=== PATIENT | male | born 1965 | race Caucasian/White ===

== ENCOUNTER 2016-08-23 14:34 | Emergency (ER) | payer MEDICAID, OTHER ==
[2016-08-23 14:58] VITALS: BP 129/82; PULSE 106; RESP 19; TEMP 98.3; O2SAT 97
--- NOTE | 2016-08-23 15:21 | C.PDOC ---
History Of Present Illness 51 Y/O MALE REQUESTING ALCOHOL DETOX. DENIES WITHDRAWAL SYMPTOMS OR ANY OTHER COMPLAINTS. Time Seen by Provider: 08/23/16 15:06 Chief Complaint (Nursing): Substance Abuse History Per: Patient History/Exam Limitations: no limitations Current Symptoms Are (Timing): Still Present Modifying Factor(s): Alcohol Associated Symptoms: denies: Suicidal Thoughts, Suicidal Plan Recent travel outside of the [place]: No Past Medical History Reviewed: Historical Data, Nursing Documentation, Vital Signs Vital Signs: Last Vital Signs Temp 98.3 F 08/23/16 14:54 Pulse 106 H 08/23/16 14:54 Resp 19 08/23/16 14:54 BP 129/82 08/23/16 14:54 Pulse Ox 97 08/23/16 15:24 - Medical History PMH: No Chronic Diseases - [facility] Procedures DETOXIFICATION SERVICES FOR SUBSTANCE ABUSE TREATMENT (11/22/15) Family History: States: Unknown Family Hx - Social History Hx Alcohol Use: Yes Hx Substance Use: No - Immunization History Hx Tetanus Toxoid Vaccination: (unk) Hx Influenza Vaccination: (unk) Hx Pneumococcal Vaccination: (unk) Review Of Systems Except As Marked, All Systems Reviewed And Found Negative. Constitutional: Negative for: Fever, Chills Cardiovascular: Negative for: Chest Pain Respiratory: Negative for: Cough, Shortness of Breath Gastrointestinal: Negative for: Nausea, Vomiting, Abdominal Pain Skin: Negative for: Rash Physical Exam - Physical Exam Appears: Non-toxic, No Acute Distress Skin: Warm, Dry Head: Atraumatic, Normacephalic Chest: Symmetrical Cardiovascular: Rhythm Regular Respiratory: Normal Breath Sounds, No Wheezing Extremity: Normal ROM Neurological/Psych: Oriented x3 Gait: Steady ED Course And Treatment O2 Sat by Pulse Oximetry: 97 (RA) Pulse Ox Interpretation: Normal Progress - Re-Evaluation Re-evaluation Note: 08/23/16 15:31 PT INFORMED NO DETOX BEDS AVAILABLE AT THIS TIME. DISCUSSED FOLLOW UP FOR PRESCREEN WITH FAMILY MEMBERS AT BEDSIDE. Disposition - Disposition Referrals: EVELIO,DETOX [Other] Disposition: HOME/ ROUTINE Disposition Time: 15:24 Condition: GOOD Instructions: Abuse of Alcohol (ED) Print Language: CZECH - Clinical Impression Clinical Impression: Alcohol abuse - Scribe Statement The provider has reviewed the documentation as recorded by the Tung ARAGON Provider Attestation: All medical record entries made by the Scribe were at my direction and personally dictated by me. I have reviewed the chart and agree that the record accurately reflects my personal performance of the history, physical exam, medical decision making, and the department course for this patient. I have also personally directed, reviewed, and agree with the discharge instructions and disposition.
== END 2016-08-23 15:57 | disposition home or self-care (01) ==
LOC: C.ER 14:34
DX: F10.10 Alcohol abuse, uncomplicated (principal)

== ENCOUNTER 2018-04-04 13:59 | Inpatient (IN) | payer MEDICAID ==
[2018-04-04] MEDS ORDERED: Sodium Chloride 0.9% 1,000 ML IV ONE ×3 (14:51→16:58)
[2018-04-04 15:28] LABS: BASO # 0.1 K/uL (0.0-0.2); EOS # 0.2 K/uL (0.0-0.7); EOS % 3.2 % (0.0-4.0); HEMOGLOBIN 14.2 g/dL (12.0-18.0); LYMPH # 2.4 K/uL (1.0-4.3); LYMPH % 38.6 % (20.0-40.0); MEAN CELL VOLUME 108.7 fL (80.0-94.0); MEAN CORPUSCULAR HEMOGLOBIN 37.2 pg (27.0-31.0); MEAN CORPUSCULAR HGB CONC 34.2 g/dL (33.0-37.0); NEUT # 2.7 K/uL (1.8-7.0); NEUT % 42.2 % (50.0-75.0); NRBC % 0.1 % (0.0-2.0); RBC 3.82 Mil/uL (4.40-5.90); RED CELL DISTRIBUTION WIDTH 13.5 % (11.5-14.5); WHITE BLOOD COUNT 6.3 K/uL (4.8-10.8)
[2018-04-04 15:32] LABS: URINE BACTERIA RARE (<OCC); URINE BILIRUBIN NEGATIVE (NEGATIVE); URINE BLOOD 1+ (NEGATIVE); URINE CLARITY Clear (Clear); URINE COLOR Yellow (YELLOW); URINE GLUCOSE (UA) NORMAL (Normal); URINE LEUKOCYTE ESTERASE NEG Leu/uL (Negative); URINE PROTEIN 1+ mg/dL (NEGATIVE); URINE UROBILINOGEN NORMAL mg/dL (0.2-1.0)
[2018-04-04 15:43] LABS: ALB/GLOB RATIO 1.4 (1.0-2.1); ALBUMIN 4.9 g/dL (3.5-5.0); ALT/SGPT 177 U/L (21-72); AST/SGOT 236 U/L (17-59); BLOOD UREA NITROGEN 13 mg/dL (9-20); GFR NON-AFRICAN AMERICAN > 60
[2018-04-04 15:44] LABS: ACETAMINOPHEN < 10.0 ug/mL (10.0-30.0); SALICYLATE < 1.0 mg/dL 1
[2018-04-04 15:56] LABS: BARBITURATES, UR NEGATIVE (NEGATIVE); BENZODIAZEPINES, UR NEGATIVE (NEGATIVE); OPIATES, UR NEGATIVE (NEGATIVE); PHENCYCLIDINE, UR NEGATIVE (NEGATIVE)
--- NOTE | 2018-04-04 17:04 | C.PDOC ---
History Of Present Illness 52 year old male presents to the emergency department with complaints of alcohol abuse and suicidal ideation. Patient reports that he drinks everyday and that he had two bottles of vodka. According to the patient's family, patient has wanted to kill himself but does not have homicidal ideation. Patient reports blood in his rectum four days ago. Time Seen by Provider: 04/04/18 14:33 Chief Complaint (Nursing): Substance Abuse History Per: Patient History/Exam Limitations: no limitations Onset/Duration Of Symptoms: Days (4) Current Symptoms Are (Timing): Still Present Suicide/Self Injury Attempted (Context): None Modifying Factor(s): Alcohol Associated Symptoms: Depression, Suicidal Thoughts Past Medical History Reviewed: Historical Data, Nursing Documentation, Vital Signs Vital Signs: Last Vital Signs Temp 98.5 F 04/04/18 16:31 Pulse 90 04/04/18 16:31 Resp 18 04/04/18 16:31 BP 128/80 04/04/18 16:31 Pulse Ox 98 04/04/18 16:31 - Medical History PMH: Depression (?) Denies: Chronic Kidney Disease Surgical History: No Surg Hx - [facility] Procedures DETOXIFICATION SERVICES FOR SUBSTANCE ABUSE TREATMENT (11/22/15) Family History: States: Unknown Family Hx - Social History Hx Alcohol Use: Yes Hx Substance Use: No - Immunization History Hx Tetanus Toxoid Vaccination: No (unk) Hx Influenza Vaccination: No (unk) Hx Pneumococcal Vaccination: No (unk) Review Of Systems Except As Marked, All Systems Reviewed And Found Negative. Constitutional: Negative for: Fever, Chills Gastrointestinal: Positive for: Other (rectal bleed). Negative for: Nausea, Vomiting, Abdominal Pain Psych: Positive for: Depression, Suicidal ideation Physical Exam - Physical Exam Appears: Non-toxic, No Acute Distress, Other (intoxicated) Skin: Warm, Dry Head: Atraumatic, Normacephalic Oral Mucosa: Moist, Other (alcohol on breath) Neck: Normal, Supple Chest: Symmetrical, No Tenderness Cardiovascular: Rhythm Regular, No Murmur Respiratory: Normal Breath Sounds, No Rales, No Rhonchi, No Wheezing Gastrointestinal/Abdominal: Soft, No Tenderness Rectal: Normal Exam, Other (No gross blood. Light brown stool.) Extremity: Normal ROM Gait: Unsteady ED Course And Treatment - Laboratory Results Result Diagrams: 04/04/18 15:18 02/09/19 15:18 Lab Results: Total Bilirubin 0.6 mg/dL (0.2-1.3) 04/04/18 15:18 AST 236 U/L (17-59) H 04/04/18 15:18 ALT 177 U/L (21-72) H D 04/04/18 15:18 Alkaline Phosphatase 87 U/L (38-126) 04/04/18 15:18 Total Protein 8.4 g/dL (6.3-8.3) H 04/04/18 15:18 Albumin 4.9 g/dL (3.5-5.0) 04/04/18 15:18 Globulin 3.5 gm/dL (2.2-3.9) 04/04/18 15:18 Albumin/Globulin Ratio 1.4 (1.0-2.1) 04/04/18 15:18 Urine Color Yellow (YELLOW) 04/04/18 15:18 Urine Clarity Clear (Clear) 04/04/18 15:18 Urine pH 5.0 (5.0-8.0) 04/04/18 15:18 Ur Specific [place] 1.004 (1.003-1.030) 04/04/18 15:18 Urine Protein 1+ mg/dL (NEGATIVE) H 04/04/18 15:18 Urine Glucose (UA) Normal mg/dL (Normal) 04/04/18 15:18 Urine Ketones Negative mg/dL (NEGATIVE) 04/04/18 15:18 Urine Blood 1+ (NEGATIVE) H 04/04/18 15:18 Urine Nitrate Negative (NEGATIVE) 04/04/18 15:18 Urine Bilirubin Negative (NEGATIVE) 04/04/18 15:18 Urine Urobilinogen Normal mg/dL (0.2-1.0) 04/04/18 15:18 Ur Leukocyte Esterase Neg Beth/uL (Negative) 04/04/18 15:18 Urine RBC (Auto) 2 /hpf (0-3) 04/04/18 15:18 Urine Bacteria Rare (<OCC) 04/04/18 15:18 Interpretation Of ECG: Normal sinus rhythm at 91bpm. O2 Sat by Pulse Oximetry: 98 (RA) Pulse Ox Interpretation: Normal Medical Decision Making Medical Decision Making: Plan: EKG Chemistry Bloodwork NaCl IV Fluids Urinalysis Disposition - Disposition Disposition Time: 19:00 Condition: STABLE Forms: [facility] (Z[place]ian) - POA Present On Arrival: None - Clinical Impression Clinical Impression: Alcohol abuse, Alcohol intoxication, Suicidal ideation - Scribe Statement The provider has reviewed the documentation as recorded by the Scribe (Kevyn Beltran) Provider Attestation: All medical record entries made by the Scribe were at my direction and personally dictated by me. I have reviewed the chart and agree that the record accurately reflects my personal performance of the history, physical exam, medical decision making, and the department course for this patient. I have also personally directed, reviewed, and agree with the discharge instructions and disposition. Physician Patient Turnover Patient Signed Over To: Tenisha Hanley Handoff Comments: Patient needs psychiatry evaluation, waiting for sobriety
--- NOTE | 2018-04-05 00:21 | PCM.BM ---
<Carter Porter Wen - Last Filed: 04/05/18 00:18> Treatment Plan Problems - Problems identified on initial assessmt Social Isolation Date Initiated: 04/04/18 Time Initiated: 23:10 Assessment reference: NA Status: Active Anxiety Related to Substance Abuse Date Initiated: 04/04/18 Time Initiated: 23:10 Assessment reference: NA Status: Active Treatment assets and liabiliti Patient Assests: adapts well, cooperative, negotiates basic needs, cognitively intact Patient Liabilities: substance abuse - Milieu Protocol Maintain good personal hygiene: daily Encourage regular showers, daily Remind patient to perform daily oral care, daily Assist patient to perform ADL's Conduct patient checks and document Observation sheet: Q15 minutes Maintain personal safety: every shift Educate patient to report safety concerns to staff, every shift Monitor environment for contraband/sharps Medication safety: Monitor for expected outcome, potential side effects: every shift, Assess barriers to learning: every shift, Assess readiness for medication education: every shift <Karla Wyman - Last Filed: 04/06/18 11:21> - Diagnosis (1) Major depression Status: Acute Interventions: 04/06/18 11:21 * Assess/adjust medications daily and /or as needed * See patient on an individual basis 7x/week to assess symptoms of depression * Monitor for side effects & effectiveness of medications * (2) Alcohol abuse Status: Acute Interventions: 04/06/18 11:21 * Assess 7x/week regarding severity of withdrawal * Educate regarding risks, benefits, side effects and alternatives of medications * Use Motivational Interviewing for abstinence * Use CBT for relapse prevention * Medication management for withdrawal symptoms * Encourage medication assisted treatment * <Amanda Rondon - Last Filed: 04/06/18 14:23> Family Contact Family involvement: Famliy/SO not involved - Goals for Treatment Patient goals for treatment: "I don't know." Discharge/Continuing Care - Education Needs Education Needs: Patient Medication, Patient Coping Skills, Patient Placement options, Patient Community resources - Discharge Discharge Criteria: Tolerates medication w/o severe side effects, No longer exhibiting s/s of withdrawal, Reduction of target symptoms Discharge to:: Substance Abuse Rehab - Treatment Team Participation Discussed with Family/SO: No Was Patient/Family/SO present at Treatment Team Meeting: Yes (SW provided interpretation to [place] language.)
[2018-04-05] MEDS: Multiple Vitamins Tab PO SCH (09:42)
--- NOTE | 2018-04-05 10:48 | PCM.PSYCH ---
Initial Psychiatric Evaluation - Initial Psychiatric Evaluation Type of Admission: Voluntary Legal Status: Capacity Chief Complaint (in patient's own words): "Depressed" History of Present Illness and Precipitating Events: The patient seen, chart reviewed and case discussed. This is a 52-year-old male, single with 3 children; aged 9, 22 and 27. The patient lives with his mother and works in factories and some stores. The patient is here for suicidal ideation with a plan to "get drunk and attack people to be killed." His family came to ER with him and they collaborated his story that he had been depressed on and off for many years, exacerbated by his father's and favorite niece's . Moreover, he drinks heavily which makes him even more depressed. He reports drinking "all day long" and also reports many withdrawal symptoms. He is BAL was 485 on arrival and his liver enzymes were very elevated. He denies drug use. Other than depressive symptoms he also hears voices telling him negative things. He denies nanette. Past psychiatric: Depression. Noncompliant with treatments Family psych history: Father was also depressed. Medical history: GI bleed due to alcohol. Current Medications: Active Medications Generic Name Dose Route Start Last Admin Trade Name Freq PRN Reason Stop Dose Admin Clonidine HCl 0.1 mg 04/05/18 00:06 Catapres PO Q4H PRN Symptoms of alcohol withdrawl Escitalopram Oxalate 5 mg 04/05/18 11:00 Lexapro PO DAILY HALLE Folic Acid 1 mg 04/05/18 10:00 04/05/18 09:42 Folic Acid PO 1 mg DAILY HALLE Administration Influenza Virus Vaccine 60 mcg 04/06/18 10:00 Flucelvax Quad [id number] Syr IM 04/06/18 10:01 .ONCE ONE Lorazepam 1 mg 04/05/18 00:06 04/05/18 09:42 Ativan PO 1 mg Q4H PRN Administration Symptoms of alcohol withdrawl Lorazepam 2 mg 04/05/18 00:15 04/05/18 06:35 Ativan PO 04/11/18 00:14 2 mg Q6H HALLE Administration Taper Multivitamins 1 tab 04/05/18 10:00 04/05/18 09:42 Hexavitamin PO 1 tab DAILY HALLE Administration Nicotine 1 patch 04/04/18 20:00 02/10/19 09:40 Nicoderm Cq TD 1 patch DAILY HALLE Administration Pneumococcal Polyvalent Vaccine 0.5 ml 04/06/18 10:30 Pneumovax 23 Vaccine IM 04/06/18 10:31 .ONCE ONE Thiamine HCl 100 mg 04/05/18 10:00 04/05/18 09:42 Vitamin B1 Tab PO 100 mg DAILY HALLE Administration Trazodone HCl 50 mg 04/05/18 00:06 Desyrel PO HS PRN Insomnia Past Psychiatric History - Past Psychiatric History Previous Treatment History: Intensive Outpatient Pertinent Medical Hx (Current Medical&Sleep Prob, Allergies): Allergies Allergy/AdvReac Type Severity Reaction Status Date / Time No Known Allergies Allergy Verified 04/04/18 14:17 No Known Home Med 04/04/18 Review of Systems - Psychiatric Psychiatric: Abnormal Sleep Pattern, Anhedonia, Anxiety, Depression, Difficulty Concentrating, Mood Swings. absent: Homicidal Ideation, Suicidal Ideation Mental Status Examination - Personal Presentation Personal Presentation: Looks older than stated age - Affect Affect: Blunted - Motor Activity Motor Activity: Calm - Reliability in Providing Information Reliability in Providing Information: Good - Speech Speech: Organized - Mood Mood: Depressed, Anxious - Formal Thought Process Formal Thought Process: No Impairment - Cognitive Functions Orientation: Person, Place, Situation, Time Sensorium: Drowsy Attention/Concentration: Easily distracted Estimate of Intelligence: Average Judgement: Intact, as evidence by: Insight regarding need for hospitalization Memory: Recent intact, as evidence by: Ability to recall events of the day, Remote impaired as evidenced by: Inability to recall sig life events - Risk Risk: Seizure, Withdrawal, Diminished functioning - Strength & Assets Inventory Strength & Assets Inventory: Cooperative - Limitations Limitations: Other DSM 5 DX - DSM 5 DSM 5 Diagnosis: Major depressive d/o - recurrent, severe with psychotic sxs Alcohol use d/o - severe Alcohol withdrawal - Recommended/Plan of Treatment Treatment Recommendations and Plan of Treatment: Taper with ativan due to elevated LFTs Lexapro for depression, start 5 mg but increase to 20 mg slowly Gabapentin for augmentation if needed (he is dizzy, so will hold off) As needed medications All risks, benefits and alternatives of the meds discussed, and the pt agreed and understood. Attend groups and activities Supportive therapy and psychoeducation [place] for abstinence CBT for relapse prevention Encourage MAT Refer to rehab or IOP, and self-help groups Teach healthy lifestyle methods, i.e. diet, exercise, meditation Smoking cessation with [place] Nicotine patch if needed 34 min Projected ELOS: 7 days Prognosis: good w rehab and meds - Smoking Cessation Smoking Cessation Initiated: Yes
[2018-04-06] MEDS: Multiple Vitamins Tab PO SCH (09:49)
[2018-04-06] MEDS ORDERED: Pantoprazole 40 mg EC Tab PO SCH (10:00)
[2018-04-06] MEDS ORDERED: Influenza Vaccine 60 mcg/0.5 mL SYR (4YR UP) IM ONE (10:00)
[2018-04-06] MEDS ORDERED: Pneumococcal 23-Valent Vaccine IM ONE (10:30)
--- NOTE | 2018-04-06 11:22 | PCM.PYCHPN ---
Psychiatric Progress Note - Psychiatric Progress Note Patient seen today, length of contact: 15 min Medication Change: Yes Medical Record Reviewed: Yes Mental Status Examination - Cognitive Function Orientation: Person, Place, Situation, Time Memory: Intact Attention: WNL Concentration: Poor Association: WNL Fund of Knowledge: Poor - Mood Mood: Depressed, Anxious - Affect Affect: Constricted - Speech Speech: Soft - Formal Thought Process Formal Thought Process: No Impairment - Suicidal Ideation Suicidal Ideation: No - Homicidal Ideation Homicidal Ideation: No Goal/Treatment Plan - Goal/Treatment Plan Need for Continued Stay: Remain at risks for inpatient hospitalization, Severe depression anxiety Progress Toward Problem(s) and Goals/Treatment Plan: Major depressive d/o - recurrent, severe with psychotic symptoms Alcohol use d/o - severe Alcohol withdrawal Taper with ativan due to elevated LFTs Lexapro for depression, start 5 mg but increase to 20 mg slowly Gabapentin for augmentation if needed (he is dizzy, so will hold off) As needed medications All risks, benefits and alternatives of the meds discussed, and the pt agreed and understood. Attend groups and activities Supportive therapy and psychoeducation [place] for abstinence CBT for relapse prevention Encourage MAT Refer to rehab or IOP, and self-help groups Teach healthy lifestyle methods, i.e. diet, exercise, meditation Smoking cessation with [place] Nicotine patch if needed - Smoking Cessation Smoking Cessation Initiated: No
--- NOTE | 2018-04-06 14:44 | CARD ---
APPROVED REPORT Date of service: 04/04/2018 EKG Measurement Heart [id number] <Conclusion> Normal sinus rhythm Normal ECG
--- NOTE | 2018-04-06 18:05 | CP.PCM.CON ---
<Torsten Muniz - Last Filed: 04/06/18 19:39> History of Present Illness - History of Present Illness History of Present Illness: 52 year old male with a past medical history of alcohol abuse consults medicine team for bright red blood per rectum. Patient states he's been having multiple episodes of bloody bowel movements for the past four days. Patient who admits is a heavy drinker, denies any associated pain with defecation. Patient also reports some lightheadedness upon examination. Patient denies any chest pain, shortness of breath, fevers, chills, headaches, syncopal episodes, or any other complaints. PMH: Denies Surgical history: denies Allergies: Denies Medications: Denies Social history: Drinks 4 pints of vodka daily and Coors Light. 4 cigarettes/day x 12 years. Denies illicit drug use. PMD: Denies Review of Systems - Constitutional Constitutional: absent: Anorexia, Chills, Frequent Falls, Night Sweats, Weakness - EENT Eyes: absent: Blurred Vision, Discharge, Loss of Peripheral Vision, Loss of Vision Ears: absent: Ear Discharge, Dizziness Nose/Mouth/Throat: absent: Nasal Congestion, Nose Pain, Bleeding Gums, Dysphagia, Mouth Pain - Cardiovascular Cardiovascular: absent: Chest Pain, Claudication, Leg Edema, Pedal Edema, Syncope - Respiratory Respiratory: absent: Hemoptysis - Gastrointestinal Gastrointestinal: absent: Belching, Diarrhea, Dyspepsia, Heartburn, Melena, Nausea, Vomiting - Integumentary Integumentary: absent: Dry Skin, Skin Pain, Swelling - Neurological Neurological: absent: Syncope, Tremor, Vertigo, Weakness - Endocrine Endocrine: absent: Polydipsia, Polyphagia, Polyuria - Hematologic/Lymphatic Hematologic: absent: Easy Bleeding, Easy Bruising, Lymphadenopathy Past Patient History - Infectious Disease Hx of Infectious Diseases: None - Past Medical History & Family History Past Medical History?: Yes - Past Social History Smoking Status: Heavy Smoker > 10 Cigarettes Daily - CARDIAC Hx Cardiac Disorders: No Hx Hypertension: No - PULMONARY Hx Tuberculosis: No - NEUROLOGICAL HX Cerebrovascular Accident: No Hx Seizures: No - HEENT Hx HEENT Problems: No - RENAL Hx Chronic Kidney Disease: No - ENDOCRINE/METABOLIC Hx Endocrine Disorders: No - HEMATOLOGICAL/ONCOLOGICAL Hx Cancer: No Hx Human Immunodeficiency Virus (HIV): No - INTEGUMENTARY Hx Dermatological Problems: No - MUSCULOSKELETAL/RHEUMATOLOGICAL Hx Musculoskeletal Disorders: No Hx Falls: No - GASTROINTESTINAL Hx Gastrointestinal Disorders: Yes Hx Diarrhea: Yes Hx Nausea: Yes Hx Vomiting: Yes - GENITOURINARY/GYNECOLOGICAL Hx Genitourinary Disorders: No Hx Sexually Transmitted Disorders: No - PSYCHIATRIC Hx Substance Use: Yes - SURGICAL HISTORY Hx Surgeries: No - ANESTHESIA Hx Anesthesia: No Hx Anesthesia Reactions: No Meds Allergies/Adverse Reactions: Allergies Allergy/AdvReac Type Severity Reaction Status Date / Time No Known Allergies Allergy Verified 04/04/18 14:17 - Medications Medications: Current Medications Clonidine HCl (Catapres) 0.1 mg PO Q4H PRN PRN Reason: Symptoms of alcohol withdrawl Escitalopram Oxalate (Lexapro) 5 mg PO DAILY [facility] Last Admin: 04/06/18 09:49 Dose: 5 mg Folic Acid (Folic Acid) 1 mg PO DAILY [facility] Last Admin: 04/06/18 09:49 Dose: 1 mg Gabapentin (Neurontin) 100 mg PO TID [facility] Last Admin: 04/06/18 17:47 Dose: 100 mg Lorazepam (Ativan) 1 mg PO Q4H PRN PRN Reason: Symptoms of alcohol withdrawl Last Admin: 04/06/18 09:54 Dose: 1 mg Lorazepam (Ativan) 2 mg PO Q6H [facility]; Taper Stop: 04/11/18 00:14 Last Admin: 04/06/18 17:47 Dose: 2 mg Multivitamins (Hexavitamin) 1 tab PO DAILY [facility] Last Admin: 04/06/18 09:49 Dose: 1 tab Nicotine (Nicoderm Cq) 1 patch TD DAILY [facility] Last Admin: 04/06/18 09:49 Dose: 1 patch Pantoprazole Sodium (Protonix Ec Tab) 40 mg PO DAILY [facility] Last Admin: 04/06/18 09:49 Dose: 40 mg Thiamine HCl (Vitamin B1 Tab) 100 mg PO DAILY [facility] Last Admin: 04/06/18 09:49 Dose: 100 mg Trazodone HCl (Desyrel) 100 mg PO HS PRN PRN Reason: Insomnia Physical Exam - Head Exam Head Exam: ATRAUMATIC, NORMAL INSPECTION - Eye Exam Eye Exam: EOMI, Normal appearance, PERRL Pupil Exam: NORMAL ACCOMODATION - ENT Exam ENT Exam: Mucous Membranes Moist, Normal Oropharynx - Respiratory Exam Respiratory Exam: Clear to Auscultation Bilateral, NORMAL BREATHING PATTERN. absent: Respiratory Distress - Cardiovascular Exam Cardiovascular Exam: REGULAR RHYTHM, +S1, +S2 - GI/Abdominal Exam GI & Abdominal Exam: Normal Bowel Sounds, Soft. absent: Tenderness - Back Exam Back exam: NORMAL INSPECTION. absent: paraspinal tenderness - Neurological Exam Neurological exam: Alert, CN II-XII Intact, Oriented x3 Additional comments: + Tremor upper extremity bilaterally. - Psychiatric Exam Psychiatric exam: Normal Affect, Normal Mood - Skin Skin Exam: Dry, Intact Results - Vital Signs Recent Vital Signs: Last Vital Signs Temp 97.1 F L 04/06/18 09:42 Pulse 98 H 04/06/18 15:19 Resp 18 04/06/18 01:58 BP 131/77 04/06/18 15:19 Pulse Ox 95 04/04/18 21:32 - Labs Result Diagrams: 04/04/18 15:18 04/04/18 15:18 Assessment & Plan - Assessment and Plan (Free Text) Assessment: 52 year old male with a past medical history of etoh abuse for gi bleed. Plan: 1.GI Bleed Transfer to Telemetry -Multiple BM's witnessed with blood in toilet. -NPO Diet -Monitor h/h -GI Dr. Florez consulted. Help appreciated -Protonix 40mg IVP Q12 2.Transaminitis AST:236 ALT: 177 Likely 2/2 to alcohol abuse. -Hepatitis panel ordered. Will f/u with results. -Abdominal u/s ordered .Will f/u with results. 3.etoh Withdrawal JANUARY:485 on admission Ativan 2q6 HALLE Ativan 1q4 PRN Seizure Precautions Fall precautions Psychiatry consulted. Help appreciated. 4. Insomnia Trazadone 100mg PO HS PRN 5. Hypertension Clonidine .1mg PO Q4 PRN 6. Smoking cesastion Nicoderm Patch 1 TD Daily Plan discussed with Attending Dr. Vic Muniz <Kiya Ho V - Last Filed: 04/06/18 23:36> Meds - Medications Medications: Current Medications Clonidine HCl (Catapres) 0.1 mg PO Q4H PRN PRN Reason: Symptoms of alcohol withdrawl Escitalopram Oxalate (Lexapro) 5 mg PO DAILY [facility] Last Admin: 04/06/18 09:49 Dose: 5 mg Folic Acid (Folic Acid) 1 mg PO DAILY [facility] Last Admin: 04/06/18 09:49 Dose: 1 mg Gabapentin (Neurontin) 100 mg PO TID [facility] Last Admin: 04/06/18 17:47 Dose: 100 mg Multivitamins/Vitamin C 10 ml/Thiamine HCl 100 mg/ Folic Acid 1 mg/ Sodium Chloride 1,011.2 mls @ 120 mls/hr IV .Q8H26M ONE Stop: 04/07/18 03:31 Last Admin: 04/06/18 21:11 Dose: 120 mls/hr Magnesium Sulfate/Dextrose (Magnesium Sulfate 1 Gm/100 Ml D5w) 1 gm in 100 mls @ 300 mls/hr IVPB Q30M [facility] Stop: 04/07/18 00:19 Lorazepam (Ativan) 1 mg IVP Q4H PRN PRN Reason: Symptoms of alcohol withdrawl Multivitamins (Hexavitamin) 1 tab PO DAILY [facility] Last Admin: 04/06/18 09:49 Dose: 1 tab Nicotine (Nicoderm Cq) 1 patch TD DAILY [facility] Last Admin: 04/06/18 09:49 Dose: 1 patch Pantoprazole Sodium (Protonix Inj) 40 mg IVP Q12H [facility] Last Admin: 04/06/18 21:07 Dose: 40 mg Thiamine HCl (Vitamin B1 Tab) 100 mg PO DAILY [facility] Last Admin: 04/06/18 09:49 Dose: 100 mg Trazodone HCl (Desyrel) 100 mg PO HS PRN PRN Reason: Insomnia Results - Vital Signs Recent Vital Signs: Last Vital Signs Temp 98.6 F 04/06/18 21:10 Pulse 98 H 04/06/18 21:10 Resp 20 04/06/18 21:10 BP 123/79 04/06/18 21:10 Pulse Ox 97 04/06/18 21:10 - Labs Result Diagrams: 04/06/18 20:10 04/06/18 20:10 Labs: Laboratory Results - last 24 hr 04/06/18 04/06/18 04/06/18 20:10 20:10 20:10 WBC 8.5 RBC 3.90 L Hgb 14.8 Hct 42.4 MCV 108.8 H MCH 38.0 H MCHC 34.9 RDW 12.9 Plt Count 92 L MPV 11.8 H Neut % (Auto) 71.2 Lymph % (Auto) 16.2 L Pitt % (Auto) 10.4 H Eos % (Auto) 1.5 Baso % (Auto) 0.7 Neut # (Auto) 6.1 Lymph # (Auto) 1.4 Pitt # (Auto) 0.9 H Eos # (Auto) 0.1 Baso # (Auto) 0.1 PT 13.0 H INR 1.2 Sodium 137 Potassium 3.6 Chloride 98 Carbon Dioxide 26 Anion Gap 16 BUN 19 Creatinine 1.1 Est GFR ( Amer) > 60 Est GFR (Non-Af Amer) > 60 Random Glucose 111 H Calcium 10.0 Phosphorus 3.7 Magnesium 1.2 L Total Bilirubin 1.4 H AST 594 H D ALT 400 H D Alkaline Phosphatase 90 Total Protein 9.2 H Albumin 5.2 H Globulin 4.1 H Albumin/Globulin Ratio 1.3 Hep Bs Antigen Hepatitis C Antibody 04/06/18 20:10 WBC RBC Hgb Hct MCV MCH MCHC RDW Plt Count MPV Neut % (Auto) Lymph % (Auto) Pitt % (Auto) Eos % (Auto) Baso % (Auto) Neut # (Auto) Lymph # (Auto) Pitt # (Auto) Eos # (Auto) Baso # (Auto) PT INR Sodium Potassium Chloride Carbon Dioxide Anion Gap BUN Creatinine Est GFR ( Amer) Est GFR (Non-Af Amer) Random Glucose Calcium Phosphorus Magnesium Total Bilirubin AST ALT Alkaline Phosphatase Total Protein Albumin Globulin Albumin/Globulin Ratio Hep Bs Antigen Negative Hepatitis C Antibody Negative Attending/Attestation - Attestation I have personally seen and examined this patient.: Yes I have fully participated in the care of the patient.: Yes I have reviewed all pertinent clinical information: Yes Notes (Text): Medicine consulted for rectal bleeding Patient on 5EAST for management of alcohol withdrawal and suicidal ideation Reported to his nurse today, that he has been having rectal bleeding since . Observed patient's toilet bowl noted blood no clots observed as well as multiple toilet tissues noted for blood streaks. No new blood work was collected for today; noted megaloblastic anemia, thrombocytopenia from 04/04/18. Patient ordered for new blood work today. Patient has noted heavy alcohol use; admitted 400 level. Patient is quite tremulous on exam; psych is managing him with ativan PO taper, MVI/folic/thiamine and started him on Lexapro. Patient transferred out to telemetry floor in light of rectal bleeding/ Start protonic 40mg IVQ12. f/u H/H/ occult blood. Patient denies NSAIDS, denies hx of ulcer, no prior endoscopy/colonoscopy. Will obtain GI eval. Assessment/Plan 1) Rectal Bleeding * monitor on telemetry * gi consult * NPO * repeat blood work * protonix 40mg IV Q12H * Observed patient's toilet bowl noted blood no clots observed as well as multiple toilet tissues noted for blood streaks 2) Transaminitis * suspect secondary to alcohol * Abdominal US ordered * tylenol <10 * alcohol 485 * hepatitis panel pending * check INR in AM 3) Alcohol Abuse/Withdrawal * continue banana bag on the telemetry floor * Ativan As needed for symptoms of withdrawa * Fall precautions 4) Thrombocytopenia * suspect secondary to alcohol effect on bone marrow suppression * Monitor while on Protonix * no noted rashing, petechaie on exam * Abdominal US ordered 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
[2018-04-06] MEDS ORDERED: Sodium Chloride 0.9% 1,000 ML IV SCH (18:15)
[2018-04-06] MEDS ORDERED: Multivitamin (MVI) 10 ML, Thiamine 100 MG, Folic Acid 1 MG in Sodium Chloride 0.9% 1,00... IV ONE (19:06)
[2018-04-06 20:22] LABS: INR 1.2
[2018-04-06 20:26] LABS: BASO # 0.1 K/uL (0.0-0.2); BASO % 0.7 % (0.0-2.0); EOS # 0.1 K/uL (0.0-0.7); EOS % 1.5 % (0.0-4.0); HEMOGLOBIN 14.8 g/dL (12.0-18.0); LYMPH # 1.4 K/uL (1.0-4.3); LYMPH % 16.2 % (20.0-40.0); MEAN CELL VOLUME 108.8 fL (80.0-94.0); MEAN CORPUSCULAR HGB CONC 34.9 g/dL (33.0-37.0); MEAN PLATELET VOLUME 11.8 fL (7.2-11.7); MONO # 0.9 K/uL (0.0-0.8); MONO % 10.4 % (0.0-10.0); NEUT # 6.1 K/uL (1.8-7.0); NEUT % 71.2 % (50.0-75.0); NRBC % 0.1 % (0.0-2.0); RBC 3.9 Mil/uL (4.40-5.90); RED CELL DISTRIBUTION WIDTH 12.9 % (11.5-14.5); WHITE BLOOD COUNT 8.5 K/uL (4.8-10.8)
[2018-04-06 20:37] LABS: ALB/GLOB RATIO 1.3 (1.0-2.1); ALBUMIN 5.2 g/dL (3.5-5.0); ALT/SGPT 400 U/L (21-72); AST/SGOT 594 U/L (17-59); BLOOD UREA NITROGEN 19 mg/dL (9-20); GFR NON-AFRICAN AMERICAN > 60
[2018-04-06 21:57] LABS: HEPATITIS B SURFACE AG Negative (NEGATIVE)
[2018-04-06 23:12] LABS: HEPATITIS C ANTIBODY NEGATIVE (NEGATIVE)
[2018-04-06] MEDS: Magnesium Sulfate 1 gm in D5W 1 GM/100 ML BAG IVPB SCH (23:34)
[2018-04-07] MEDS: Magnesium Sulfate 1 gm in D5W 1 GM/100 ML BAG IVPB SCH (01:00)
[2018-04-07 01:31] LABS: HEPATITIS A IGM NEGATIVE (NEGATIVE); HEPATITIS B CORE AB NEGATIVE (NEGATIVE)
[2018-04-07 06:36] LABS: BASO % 0.4 % (0.0-2.0); EOS # 0.1 K/uL (0.0-0.7); EOS % 1.6 % (0.0-4.0); LYMPH # 1.7 K/uL (1.0-4.3); LYMPH % 19.8 % (20.0-40.0); MEAN CELL VOLUME 110.1 fL (80.0-94.0); MEAN CORPUSCULAR HEMOGLOBIN 38.9 pg (27.0-31.0); MEAN CORPUSCULAR HGB CONC 35.3 g/dL (33.0-37.0); MEAN PLATELET VOLUME 11.8 fL (7.2-11.7); MONO # 1.1 K/uL (0.0-0.8); NEUT # 5.8 K/uL (1.8-7.0); NEUT % 66.2 % (50.0-75.0); NRBC % 0.1 % (0.0-2.0); RBC 3.62 Mil/uL (4.40-5.90); RED CELL DISTRIBUTION WIDTH 13.2 % (11.5-14.5); WHITE BLOOD COUNT 8.8 K/uL (4.8-10.8)
[2018-04-07 06:48] LABS: ALB/GLOB RATIO 1.3 (1.0-2.1); ALT/SGPT 477 U/L (21-72); AST/SGOT 674 U/L (17-59); BLOOD UREA NITROGEN 13 mg/dL (9-20); CALCIUM 9.4 mg/dl (8.6-10.4); GFR NON-AFRICAN AMERICAN > 60; INR 1.1; PROTHROMBIN TIME 12.3 SECONDS (9.7-12.2)
[2018-04-07 06:53] LABS: IRON 126 ug/dL (49-181)
--- NOTE | 2018-04-07 06:59 | CP.PCM.PN ---
<Tigre Woodall - Last Filed: 04/07/18 22:37> Subjective - Date & Time of Evaluation Date of Evaluation: 04/07/18 Time of Evaluation: 06:59 - Subjective Subjective: Progress note for Hospitalist service Patient seen and examined at bedside. As per overnight staff, patient was reportedly severely agitated despite multiple doses of Ativan. Medicine team was consulted for rectal bleeding and has a history of alcohol abuse. Unable to obtain further information from patient as he is confused. Objective - Vital Signs/Intake and Output Vital Signs (last 24 hours): Temp Pulse Resp BP Pulse Ox 98.2 F 91 H 20 141/83 97 04/07/18 04:00 04/07/18 04:00 04/07/18 04:00 04/07/18 04:00 04/07/18 04:00 - Medications Medications: Current Medications Clonidine HCl (Catapres) 0.1 mg PO Q4H PRN PRN Reason: Symptoms of alcohol withdrawl Escitalopram Oxalate (Lexapro) 5 mg PO DAILY [facility] Last Admin: 04/06/18 09:49 Dose: 5 mg Folic Acid (Folic Acid) 1 mg PO DAILY [facility] Last Admin: 04/06/18 09:49 Dose: 1 mg Gabapentin (Neurontin) 100 mg PO TID [facility] Last Admin: 04/06/18 17:47 Dose: 100 mg Lorazepam (Ativan) 2 mg IVP Q30M PRN PRN Reason: Symptoms of alcohol withdrawl Last Admin: 04/07/18 06:17 Dose: 2 mg Multivitamins (Hexavitamin) 1 tab PO DAILY [facility] Last Admin: 04/06/18 09:49 Dose: 1 tab Nicotine (Nicoderm Cq) 1 patch TD DAILY [facility] Pantoprazole Sodium (Protonix Inj) 40 mg IVP Q12H [facility] Last Admin: 04/07/18 06:34 Dose: 40 mg Thiamine HCl (Vitamin B1 Tab) 100 mg PO DAILY [facility] Last Admin: 04/06/18 09:49 Dose: 100 mg Trazodone HCl (Desyrel) 100 mg PO HS PRN PRN Reason: Insomnia - Labs Labs: 04/06/18 20:10 04/07/18 06:24 PT 12.3 SECONDS (9.7-12.2) H 04/07/18 06:24 INR 1.1 04/07/18 06:24 - Constitutional Appears: Agitated, Confused - Head Exam Head Exam: ATRAUMATIC, NORMOCEPHALIC - Eye Exam Eye Exam: EOMI, PERRL - ENT Exam ENT Exam: Mucous Membranes Moist - Respiratory Exam Respiratory Exam: NORMAL BREATHING PATTERN - Cardiovascular Exam Cardiovascular Exam: Tachycardia, +S1, +S2 - GI/Abdominal Exam GI & Abdominal Exam: Soft, Normal Bowel Sounds. absent: Tenderness - Extremities Exam Extremities Exam: absent: Pedal Edema - Neurological Exam Additional comments: Confused - Psychiatric Exam Psychiatric exam: Agitated - Skin Skin Exam: Dry, Warm Assessment and Plan - Assessment and Plan (Free Text) Assessment: 52 year old male with history of alcohol abuse who had GI bleed, overnight patient remained agitated despite multiple doses of Ativan. Plan: Delirium tremens Alcohol withdrawal Remains agitated despite multiple doses of Ativan overnight Tachycardic Transferred to ICU GI bleed Keep NPO Monitor H/H GI Dr. Florez consulted, help appreciated Protonix 40mg IV Q12 Transaminitis AST 674 ALT 477 likely due to alcohol abuse Abdomen US fatty infiltration vs. parenchymal disease Hep panel negative Keep NPO Hypokalemia K 3.3 repleted Dispo: Transferred to ICU given concern for DTs Case discussed with Dr. Vic Woodall, PGY1 <Kiya Ho V - Last Filed: 04/09/18 20:32> Objective - Vital Signs/Intake and Output Vital Signs (last 24 hours): Temp Pulse Resp BP Pulse Ox 97.4 F L 100 H 15 118/68 97 04/09/18 08:00 04/09/18 20:00 04/09/18 20:00 04/09/18 20:00 04/09/18 20:00 Intake and Output: 04/09/18 04/10/18 18:59 06:59 Intake Total 2220.58 7 Output Total 700 Balance 1520.58 7 - Medications Medications: Current Medications Artificial Tears (Artificial Tears) 0 ml OU BID [facility] Last Admin: 04/09/18 17:56 Dose: 1 drop Bisacodyl (Dulcolax) 10 mg PO ONCE ONE Stop: 04/10/18 06:01 Escitalopram Oxalate (Lexapro) 5 mg PO DAILY [facility] Last Admin: 02/14/19 09:18 Dose: 5 mg Folic Acid (Folic Acid) 1 mg PO DAILY [facility] Last Admin: 04/06/18 09:49 Dose: 1 mg Gabapentin (Neurontin) 100 mg PO TID [facility] Last Admin: 04/09/18 17:50 Dose: 100 mg Dexmedetomidine HCl 200 mcg/ (Sodium Chloride) 50 mls @ 2.95 mls/hr IV TITR PRN; Protocol PRN Reason: Agitation Last Titration: 04/09/18 19:22 Dose: 0 mcg/kg/hr, 0 mls/hr Lorazepam (Ativan) 2 mg PO Q4 [facility]; Taper Stop: 04/12/18 22:59 Last Admin: 04/09/18 20:22 Dose: 2 mg Multivitamins (Hexavitamin) 1 tab PO DAILY [facility] Last Admin: 04/06/18 09:49 Dose: 1 tab Nicotine (Nicoderm Cq) 1 patch TD DAILY [facility] Last Admin: 04/09/18 09:18 Dose: 1 patch Pantoprazole Sodium (Protonix Inj) 40 mg IVP Q12H [facility] Last Admin: 04/09/18 17:51 Dose: 40 mg Potassium Chloride (K-Dur 20 Meq Er Tab) 40 meq PO ONCE ONE Stop: 04/10/18 15:52 Thiamine HCl (Vitamin B1 Tab) 100 mg PO DAILY [facility] Last Admin: 04/06/18 09:49 Dose: 100 mg Trazodone HCl (Desyrel) 100 mg PO HS PRN PRN Reason: Insomnia - Labs Labs: 04/09/18 14:51 04/09/18 14:51 PT 12.3 SECONDS (9.7-12.2) H 04/07/18 06:24 INR 1.1 04/07/18 06:24 Assessment and Plan (1) Alcohol abuse Status: Acute (2) Alcohol intoxication Status: Acute (3) Rectal bleeding Status: Acute (4) Prophylactic measure Status: Acute Attending/Attestation - Attestation I have personally seen and examined this patient.: Yes I have fully participated in the care of the patient.: Yes I have reviewed all pertinent clinical information, including history, physical exam and plan: Yes Notes (Text): This is late computer entry for 04/07/18. Patient seen, examined and case discussed with day-time resident. Discussed with night time resident, patient require Ativan 14mg IV total overnight; inspite, patient remains tachycardia, agitated, hallucinating, with 2 1:1 persons preventing the patient from trying to get out of bed. Discussed with ICU, patient accepted and transferred to the unit for delirum tremens, on Precedex drip.
[2018-04-07 07:02] LABS: % IRON SATURATION 37 (20-55); TOTAL IRON BINDING CAPACITY 344 ug/dL (250-450)
[2018-04-07 07:59] LABS: FOLATE > 20.0 ng/mL
[2018-04-07] MEDS: Dexmedetomidine Hydrochloride 200 MCG in Sodium Chloride 0.9% 48 ML IV PRN ×8 (09:15→23:00)
[2018-04-07] MEDS ORDERED: Multivitamin (MVI) 10 ML, Thiamine 100 MG, Folic Acid 1 MG in Sodium Chloride 0.9% 1,00... IV ONE ×2 (10:31→11:00)
--- NOTE | 2018-04-07 13:18 | US ---
Abdominal ultrasound HISTORY: Transaminitis. COMPARISON: 11/22/2015 TECHNIQUE: Real-time sonography was performed through the abdomen. FINDINGS: LIVER: 17.5 centimeters in length. Increased echogenicity of the hepatic parenchymal cortex suggestive for fatty infiltration versus hepatic parenchymal disease. Clinical correlation. GALLBLADDER: No calculi or sludge. Normal wall thickness of 2 millimeters. Negative sonographic Patricio's sign. Common bile duct measures 4 millimeters, within normal limits. Limited visualization of the pancreas. Spleen measures 7.8 centimeters in length, within normal limits. Limited visualization of the aorta and IVC. RIGHT KIDNEY: 11.3 x 5.6 x 5.7 centimeters. No calculi or hydronephrosis. LEFT KIDNEY: 11.3 x 5.4 x 6.2 centimeters. No calculi or hydronephrosis. Limited portable ICU study as the patient was not cooperative. IMPRESSION: 1. Increased echogenicity of the hepatic parenchymal cortex suggestive for fatty infiltration versus hepatic parenchymal disease. Clinical correlation. 2. Limited visualization of the pancreas. 3. Limited visualization of the aorta and IVC.
[2018-04-07] MEDS ORDERED: Metoprolol 1 mg/ml Inj IVP ONE (13:36)
[2018-04-07] MEDS: Sodium Chloride 0.9% 1,000 ML IV SCH (17:44)
--- NOTE | 2018-04-07 18:24 | CP.PCM.CON ---
<Silvestre Mart S - Last Filed: 04/07/18 18:46> Meds Allergies/Adverse Reactions: Allergies Allergy/AdvReac Type Severity Reaction Status Date / Time No Known Allergies Allergy Verified 04/04/18 14:17 - Medications Medications: Current Medications Chlordiazepoxide (Librium) 25 mg PO Q6 [facility]; Taper Stop: 04/11/18 17:59 Last Admin: 04/07/18 17:28 Dose: 25 mg Clonidine HCl (Catapres) 0.1 mg PO Q4H PRN PRN Reason: Symptoms of alcohol withdrawl Escitalopram Oxalate (Lexapro) 5 mg PO DAILY [facility] Last Admin: 04/07/18 10:50 Dose: 5 mg Folic Acid (Folic Acid) 1 mg PO DAILY [facility] Last Admin: 04/06/18 09:49 Dose: 1 mg Gabapentin (Neurontin) 100 mg PO TID [facility] Last Admin: 04/07/18 17:28 Dose: 100 mg Dexmedetomidine HCl 200 mcg/ (Sodium Chloride) 50 mls @ 2.95 mls/hr IV TITR PRN; Protocol PRN Reason: Agitation Last Titration: 04/07/18 17:25 Dose: 1.5 mcg/kg/hr, 22.11 mls/hr Sodium Chloride (Sodium Chloride 0.9%) 1,000 mls @ 125 mls/hr IV .Q8H [facility] Last Admin: 04/07/18 17:44 Dose: Not Given Multivitamins/Vitamin C 10 ml/Thiamine HCl 100 mg/ Folic Acid 1 mg/ Sodium Chloride 1,011.2 mls @ 125 mls/hr IV .Q8H6M ONE Stop: 04/07/18 19:05 Last Admin: 04/07/18 15:21 Dose: 125 mls/hr Multivitamins (Hexavitamin) 1 tab PO DAILY [facility] Last Admin: 04/06/18 09:49 Dose: 1 tab Nicotine (Nicoderm Cq) 1 patch TD DAILY [facility] Last Admin: 04/07/18 11:24 Dose: 1 patch Pantoprazole Sodium (Protonix Inj) 40 mg IVP Q12H [facility] Last Admin: 04/07/18 17:30 Dose: 40 mg Thiamine HCl (Vitamin B1 Tab) 100 mg PO DAILY [facility] Last Admin: 04/06/18 09:49 Dose: 100 mg Trazodone HCl (Desyrel) 100 mg PO HS PRN PRN Reason: Insomnia Results - Vital Signs Recent Vital Signs: Last Vital Signs Temp 97.4 F L 04/07/18 16:00 Pulse 73 04/07/18 18:00 Resp 15 04/07/18 15:38 BP 144/89 04/07/18 17:42 Pulse Ox 95 04/07/18 18:00 - Labs Result Diagrams: 04/07/18 06:24 04/07/18 06:24 Labs: Laboratory Results - last 24 hr 04/06/18 04/06/18 04/06/18 20:10 20:10 20:10 WBC 8.5 RBC 3.90 L Hgb 14.8 Hct 42.4 MCV 108.8 H MCH 38.0 H MCHC 34.9 RDW 12.9 Plt Count 92 L MPV 11.8 H Neut % (Auto) 71.2 Lymph % (Auto) 16.2 L Carson % (Auto) 10.4 H Eos % (Auto) 1.5 Baso % (Auto) 0.7 Neut # (Auto) 6.1 Lymph # (Auto) 1.4 Carson # (Auto) 0.9 H Eos # (Auto) 0.1 Baso # (Auto) 0.1 Differential Comment Retic Count PT 13.0 H INR 1.2 Sodium 137 Potassium 3.6 Chloride 98 Carbon Dioxide 26 Anion Gap 16 BUN 19 Creatinine 1.1 Est GFR ( Amer) > 60 Est GFR (Non-Af Amer) > 60 Random Glucose 111 H Calcium 10.0 Phosphorus 3.7 Magnesium 1.2 L Iron TIBC % Saturation Ferritin Total Bilirubin 1.4 H AST 594 H D ALT 400 H D Alkaline Phosphatase 90 Ammonia Total Protein 9.2 H Albumin 5.2 H Globulin 4.1 H Albumin/Globulin Ratio 1.3 Vitamin B12 Folate Hepatitis A IgM Ab Hep Bs Antigen Hep B Core IgM Ab Hepatitis C Antibody 04/06/18 04/07/18 04/07/18 20:10 06:24 06:24 WBC 8.8 RBC 3.62 L Hgb 14.0 Hct 39.8 MCV 110.1 H MCH 38.9 H MCHC 35.3 RDW 13.2 Plt Count 87 L MPV 11.8 H Neut % (Auto) 66.2 Lymph % (Auto) 19.8 L Carson % (Auto) 12.0 H Eos % (Auto) 1.6 Baso % (Auto) 0.4 Neut # (Auto) 5.8 Lymph # (Auto) 1.7 Carson # (Auto) 1.1 H Eos # (Auto) 0.1 Baso # (Auto) 0.0 Differential Comment Retic Count 0.4 L PT INR Sodium Potassium Chloride Carbon Dioxide Anion Gap BUN Creatinine Est GFR ( Amer) Est GFR (Non-Af Amer) Random Glucose Calcium Phosphorus Magnesium Iron 126 TIBC 344 % Saturation 37 Ferritin Total Bilirubin AST ALT Alkaline Phosphatase Ammonia Total Protein Albumin Globulin Albumin/Globulin Ratio Vitamin B12 Folate Hepatitis A IgM Ab Negative Hep Bs Antigen Negative Hep B Core IgM Ab Negative Hepatitis C Antibody Negative 04/07/18 04/07/18 04/07/18 06:24 06:24 06:24 WBC RBC Hgb Hct MCV MCH MCHC RDW Plt Count MPV Neut % (Auto) Lymph % (Auto) Carson % (Auto) Eos % (Auto) Baso % (Auto) Neut # (Auto) Lymph # (Auto) Carson # (Auto) Eos # (Auto) Baso # (Auto) Differential Comment Retic Count PT 12.3 H INR 1.1 Sodium 136 Potassium 3.3 L Chloride 102 Carbon Dioxide 21 L Anion Gap 16 BUN 13 Creatinine 0.7 L Est GFR ( Amer) > 60 Est GFR (Non-Af Amer) > 60 Random Glucose 117 H Calcium 9.4 Phosphorus Magnesium 1.9 Iron TIBC % Saturation 38 Ferritin 1160.0 Total Bilirubin 1.9 H AST 674 H ALT 477 H Alkaline Phosphatase 102 Ammonia Total Protein 9.0 H Albumin 5.0 Globulin 3.9 Albumin/Globulin Ratio 1.3 Vitamin B12 > 1000 H Folate > 20.0 Hepatitis A IgM Ab Hep Bs Antigen Hep B Core IgM Ab Hepatitis C Antibody 04/07/18 06:24 WBC RBC Hgb Hct MCV MCH MCHC RDW Plt Count MPV Neut % (Auto) Lymph % (Auto) Carson % (Auto) Eos % (Auto) Baso % (Auto) Neut # (Auto) Lymph # (Auto) Carson # (Auto) Eos # (Auto) Baso # (Auto) Differential Comment Retic Count PT INR Sodium Potassium Chloride Carbon Dioxide Anion Gap BUN Creatinine Est GFR ( Amer) Est GFR (Non-Af Amer) Random Glucose Calcium Phosphorus Magnesium Iron TIBC % Saturation Ferritin Total Bilirubin AST ALT Alkaline Phosphatase Ammonia 23 Total Protein Albumin Globulin Albumin/Globulin Ratio Vitamin B12 Folate Hepatitis A IgM Ab Hep Bs Antigen Hep B Core IgM Ab Hepatitis C Antibody Attending/Attestation - Attestation I have personally seen and examined this patient.: Yes I have fully participated in the care of the patient.: Yes I have reviewed all pertinent clinical information: Yes Notes (Text): 04/07/18 18:46 Patient seen and examined Transferred to intensive care unit for delirium tremens and after he received 40 mg of Ativan on the floor Patient started on Precedex drip Continue banana bag Start Librium and follow-up [facility] protocol Potassium supplement <Manuel Elizondo M - Last Filed: 04/07/18 20:00> History of Present Illness - History of Present Illness History of Present Illness: Critical Care Consult Note for Dr. Mart. 52 year old male with PMHx of Depression and Alcohol Use Disorder, who presented to the ED on 04/04 with complaints of suicidal ideation and alcohol intoxication. Patient was admitted to the psychiatric inpatient unit on 04/04. On 04/06, patient began complaining of blood per rectum and was transferred to the telemetry floor for evaluation. Overnight 04/06 - 04/07, patient began showing signs of severe agitation unresponsive to Ativan. ICU was consulted for concern of DTs. Currently, patient is agitated and altered. ROS unobtainable due to patient's mental status. Following obtained through chart review PMH: Denies Surgical history: denies Allergies: Denies Medications: Denies Social history: Drinks 4 pints of vodka daily and Coors Light. 4 cigarettes/day x 12 years. Denies illicit drug use. Review of Systems - Review of Systems Systems not reviewed;Unavailable: Altered Mental Status Past Patient History - Infectious Disease Hx of Infectious Diseases: None - Past Medical History & Family History Past Medical History?: Yes - Past Social History Smoking Status: Light Smoker < 10 Cigarettes Daily - CARDIAC Hx Cardiac Disorders: No - PULMONARY Hx Respiratory Disorders: No - NEUROLOGICAL Hx Neurological Disorder: No - HEENT Hx HEENT Problems: No - RENAL Hx Chronic Kidney Disease: No - ENDOCRINE/METABOLIC Hx Endocrine Disorders: No - HEMATOLOGICAL/ONCOLOGICAL Hx Blood Disorders: No Hx Cancer: No - INTEGUMENTARY Hx Dermatological Problems: No - MUSCULOSKELETAL/RHEUMATOLOGICAL Hx Falls: No - GASTROINTESTINAL Hx Gastrointestinal Disorders: Yes Hx Diarrhea: Yes Hx Nausea: Yes Hx Vomiting: Yes - GENITOURINARY/GYNECOLOGICAL Hx Genitourinary Disorders: No - PSYCHIATRIC Hx Psychophysiologic Disorder: Yes Hx Anxiety: Yes Hx Depression: Yes Hx Substance Use: Yes (alcohol) - SURGICAL HISTORY Hx Surgeries: No - ANESTHESIA Hx Anesthesia: No Hx Anesthesia Reactions: No Meds - Medications Medications: Current Medications Chlordiazepoxide (Librium) 25 mg PO Q6 [facility]; Taper Stop: 04/11/18 17:59 Last Admin: 04/07/18 17:28 Dose: 25 mg Clonidine HCl (Catapres) 0.1 mg PO Q4H PRN PRN Reason: Symptoms of alcohol withdrawl Escitalopram Oxalate (Lexapro) 5 mg PO DAILY [facility] Last Admin: 04/07/18 10:50 Dose: 5 mg Folic Acid (Folic Acid) 1 mg PO DAILY [facility] Last Admin: 04/06/18 09:49 Dose: 1 mg Gabapentin (Neurontin) 100 mg PO TID [facility] Last Admin: 04/07/18 17:28 Dose: 100 mg Dexmedetomidine HCl 200 mcg/ (Sodium Chloride) 50 mls @ 2.95 mls/hr IV TITR PRN; Protocol PRN Reason: Agitation Last Titration: 04/07/18 17:25 Dose: 1.5 mcg/kg/hr, 22.11 mls/hr Sodium Chloride (Sodium Chloride 0.9%) 1,000 mls @ 125 mls/hr IV .Q8H [facility] Last Admin: 04/07/18 17:44 Dose: Not Given Multivitamins/Vitamin C 10 ml/Thiamine HCl 100 mg/ Folic Acid 1 mg/ Sodium Chloride 1,011.2 mls @ 125 mls/hr IV .Q8H6M ONE Stop: 04/07/18 19:05 Last Admin: 04/07/18 15:21 Dose: 125 mls/hr Multivitamins (Hexavitamin) 1 tab PO DAILY [facility] Last Admin: 04/06/18 09:49 Dose: 1 tab Nicotine (Nicoderm Cq) 1 patch TD DAILY [facility] Last Admin: 04/07/18 11:24 Dose: 1 patch Pantoprazole Sodium (Protonix Inj) 40 mg IVP Q12H [facility] Last Admin: 04/07/18 17:30 Dose: 40 mg Thiamine HCl (Vitamin B1 Tab) 100 mg PO DAILY [facility] Last Admin: 04/06/18 09:49 Dose: 100 mg Trazodone HCl (Desyrel) 100 mg PO HS PRN PRN Reason: Insomnia Physical Exam - Constitutional Appears: Toxic, Confused - Head Exam Head Exam: NORMAL INSPECTION - Eye Exam Eye Exam: Normal appearance - ENT Exam ENT Exam: Mucous Membranes Moist - Respiratory Exam Respiratory Exam: NORMAL BREATHING PATTERN - Cardiovascular Exam Cardiovascular Exam: +S1, +S2 - GI/Abdominal Exam GI & Abdominal Exam: Normal Bowel Sounds, Soft - Extremities Exam Extremities exam: Negative for: calf tenderness, pedal edema - Neurological Exam Neurological exam: Altered - Psychiatric Exam Psychiatric exam: Normal Affect, Normal Mood - Skin Skin Exam: Normal Color, Warm Results - Vital Signs Recent Vital Signs: Last Vital Signs Temp 97.4 F L 04/07/18 16:00 Pulse 73 04/07/18 18:00 Resp 15 04/07/18 15:38 BP 144/89 04/07/18 17:42 Pulse Ox 95 04/07/18 18:00 - Labs Result Diagrams: 04/07/18 06:24 04/07/18 06:24 Labs: Laboratory Results - last 24 hr 04/06/18 04/06/18 04/06/18 20:10 20:10 20:10 WBC 8.5 RBC 3.90 L Hgb 14.8 Hct 42.4 MCV 108.8 H MCH 38.0 H MCHC 34.9 RDW 12.9 Plt Count 92 L MPV 11.8 H Neut % (Auto) 71.2 Lymph % (Auto) 16.2 L Carson % (Auto) 10.4 H Eos % (Auto) 1.5 Baso % (Auto) 0.7 Neut # (Auto) 6.1 Lymph # (Auto) 1.4 Carson # (Auto) 0.9 H Eos # (Auto) 0.1 Baso # (Auto) 0.1 Differential Comment Retic Count PT 13.0 H INR 1.2 Sodium 137 Potassium 3.6 Chloride 98 Carbon Dioxide 26 Anion Gap 16 BUN 19 Creatinine 1.1 Est GFR ( Amer) > 60 Est GFR (Non-Af Amer) > 60 Random Glucose 111 H Calcium 10.0 Phosphorus 3.7 Magnesium 1.2 L Iron TIBC % Saturation Ferritin Total Bilirubin 1.4 H AST 594 H D ALT 400 H D Alkaline Phosphatase 90 Ammonia Total Protein 9.2 H Albumin 5.2 H Globulin 4.1 H Albumin/Globulin Ratio 1.3 Vitamin B12 Folate Hepatitis A IgM Ab Hep Bs Antigen Hep B Core IgM Ab Hepatitis C Antibody 04/06/18 04/07/18 04/07/18 20:10 06:24 06:24 WBC 8.8 RBC 3.62 L Hgb 14.0 Hct 39.8 MCV 110.1 H MCH 38.9 H MCHC 35.3 RDW 13.2 Plt Count 87 L MPV 11.8 H Neut % (Auto) 66.2 Lymph % (Auto) 19.8 L Carson % (Auto) 12.0 H Eos % (Auto) 1.6 Baso % (Auto) 0.4 Neut # (Auto) 5.8 Lymph # (Auto) 1.7 Carson # (Auto) 1.1 H Eos # (Auto) 0.1 Baso # (Auto) 0.0 Differential Comment Retic Count 0.4 L PT INR Sodium Potassium Chloride Carbon Dioxide Anion Gap BUN Creatinine Est GFR ( Amer) Est GFR (Non-Af Amer) Random Glucose Calcium Phosphorus Magnesium Iron 126 TIBC 344 % Saturation 37 Ferritin Total Bilirubin AST ALT Alkaline Phosphatase Ammonia Total Protein Albumin Globulin Albumin/Globulin Ratio Vitamin B12 Folate Hepatitis A IgM Ab Negative Hep Bs Antigen Negative Hep B Core IgM Ab Negative Hepatitis C Antibody Negative 04/07/18 04/07/18 04/07/18 06:24 06:24 06:24 WBC RBC Hgb Hct MCV MCH MCHC RDW Plt Count MPV Neut % (Auto) Lymph % (Auto) Carson % (Auto) Eos % (Auto) Baso % (Auto) Neut # (Auto) Lymph # (Auto) Carson # (Auto) Eos # (Auto) Baso # (Auto) Differential Comment Retic Count PT 12.3 H INR 1.1 Sodium 136 Potassium 3.3 L Chloride 102 Carbon Dioxide 21 L Anion Gap 16 BUN 13 Creatinine 0.7 L Est GFR ( Amer) > 60 Est GFR (Non-Af Amer) > 60 Random Glucose 117 H Calcium 9.4 Phosphorus Magnesium 1.9 Iron TIBC % Saturation 38 Ferritin 1160.0 Total Bilirubin 1.9 H AST 674 H ALT 477 H Alkaline Phosphatase 102 Ammonia Total Protein 9.0 H Albumin 5.0 Globulin 3.9 Albumin/Globulin Ratio 1.3 Vitamin B12 > 1000 H Folate > 20.0 Hepatitis A IgM Ab Hep Bs Antigen Hep B Core IgM Ab Hepatitis C Antibody 04/07/18 06:24 WBC RBC Hgb Hct MCV MCH MCHC RDW Plt Count MPV Neut % (Auto) Lymph % (Auto) Carson % (Auto) Eos % (Auto) Baso % (Auto) Neut # (Auto) Lymph # (Auto) Carson # (Auto) Eos # (Auto) Baso # (Auto) Differential Comment Retic Count PT INR Sodium Potassium Chloride Carbon Dioxide Anion Gap BUN Creatinine Est GFR ( Amer) Est GFR (Non-Af Amer) Random Glucose Calcium Phosphorus Magnesium Iron TIBC % Saturation Ferritin Total Bilirubin AST ALT Alkaline Phosphatase Ammonia 23 Total Protein Albumin Globulin Albumin/Globulin Ratio Vitamin B12 Folate Hepatitis A IgM Ab Hep Bs Antigen Hep B Core IgM Ab Hepatitis C Antibody Assessment & Plan - Assessment and Plan (Free Text) Assessment: Patient is a 52 year old male with PMHx of Depression and Alcohol Use Disorder, who was transferred to the ICU for severe agitation secondary to alcohol withdrawal/ DTs Plan: Neuro - Altered, agitated - start Precedex for sedation; currently at 2mcg - 1:1 for safety - seizure precautions - Aspiration precautions Cardiac - Tachycardic possibly 2/2 to alcohol withdrawal - Continue to monitor vitals Pulm - Potassium 3.3 today - Replete Potassium - continue multivitamins - continue Folic Acid GI - Transaminitis AST/ALT 674/477 (04/07) - Lo 1.9 - Hepatitis panel negative - NPO - Protonix Q12 for GI ppx 2/2 GI bleed - abdominal u/s 04/07: fatty infiltration vs parencymal disease - f/u fecal occult - f/u GI recs Heme - H/H 14/38.9 - Platelet count 87 Psych - ativan taper - avoid librium taper due to transaminitis - Banana bag daily - NS 125 ml/hr - aspiration precautinons - seizure precautions - per psych: - Nicoderm patch for Nicotine use disorder - Trazodone 100mg PO PRN - Lexapro 5mg - Gabapentin 100mg TID PPx - SCDs for DVT ppx; heparin contraindicated due to GI bleed - Protonix for GI ppx
[2018-04-08] MEDS: Sodium Chloride 0.9% 1,000 ML IV SCH ×4 (01:13→18:07)
[2018-04-08] MEDS: Dexmedetomidine Hydrochloride 200 MCG in Sodium Chloride 0.9% 48 ML IV PRN ×4 (02:15→20:18)
[2018-04-08 06:08] LABS: BASO % 0.4 % (0.0-2.0); EOS # 0.2 K/uL (0.0-0.7); EOS % 1.5 % (0.0-4.0); HEMOGLOBIN 13.5 g/dL (12.0-18.0); LYMPH # 1.1 K/uL (1.0-4.3); LYMPH % 8.5 % (20.0-40.0); MEAN CELL VOLUME 110.8 fL (80.0-94.0); MEAN CORPUSCULAR HEMOGLOBIN 37.3 pg (27.0-31.0); MEAN CORPUSCULAR HGB CONC 33.7 g/dL (33.0-37.0); MEAN PLATELET VOLUME 12.4 fL (7.2-11.7); MONO # 0.9 K/uL (0.0-0.8); MONO % 6.9 % (0.0-10.0); NEUT # 10.3 K/uL (1.8-7.0); NEUT % 82.7 % (50.0-75.0); NRBC % 0.1 % (0.0-2.0); PLATELET COUNT 86 K/uL (130-400); RBC 3.62 Mil/uL (4.40-5.90); RED CELL DISTRIBUTION WIDTH 12.9 % (11.5-14.5); WHITE BLOOD COUNT 12.4 K/uL (4.8-10.8)
[2018-04-08 06:31] LABS: ALB/GLOB RATIO 1.2 (1.0-2.1); ALBUMIN 4.4 g/dL (3.5-5.0); ALT/SGPT 567 U/L (21-72); AST/SGOT 635 U/L (17-59); BLOOD UREA NITROGEN 12 mg/dL (9-20); CALCIUM 8.9 mg/dl (8.6-10.4); GFR NON-AFRICAN AMERICAN > 60
--- NOTE | 2018-04-08 08:19 | CP.PCM.PN ---
Subjective - Date & Time of Evaluation Date of Evaluation: 04/08/18 Time of Evaluation: 08:15 - Subjective Subjective: Medical Attending note Patient see and examined. patient is on low dose sedation. Discussed with RN, no acute events overnight. patient is following commands. Objective - Vital Signs/Intake and Output Vital Signs (last 24 hours): Temp Pulse Resp BP Pulse Ox 97.6 F 85 27 H 113/67 95 04/08/18 04:00 04/08/18 07:00 04/08/18 07:00 04/08/18 06:42 04/08/18 07:00 Intake and Output: 04/08/18 04/08/18 06:59 18:59 Intake Total 1930.8 132.4 Output Total 575 Balance 1930.8 -442.6 - Medications Medications: Current Medications Clonidine HCl (Catapres) 0.1 mg PO Q4H PRN PRN Reason: Symptoms of alcohol withdrawl Escitalopram Oxalate (Lexapro) 5 mg PO DAILY [facility] Last Admin: 04/07/18 10:50 Dose: 5 mg Folic Acid (Folic Acid) 1 mg PO DAILY [facility] Last Admin: 04/06/18 09:49 Dose: 1 mg Gabapentin (Neurontin) 100 mg PO TID [facility] Last Admin: 04/07/18 18:30 Dose: Not Given Dexmedetomidine HCl 200 mcg/ (Sodium Chloride) 50 mls @ 2.95 mls/hr IV TITR PRN; Protocol PRN Reason: Agitation Last Titration: 04/08/18 06:00 Dose: 0.5 mcg/kg/hr, 7.37 mls/hr Sodium Chloride (Sodium Chloride 0.9%) 1,000 mls @ 125 mls/hr IV .Q8H [facility] Last Admin: 04/08/18 07:54 Dose: 125 mls/hr Magnesium Sulfate/Dextrose (Magnesium Sulfate 1 Gm/100 Ml D5w) 1 gm in 100 mls @ 200 mls/hr IVPB Q30M [facility] Stop: 04/08/18 08:59 Potassium Chloride (Potassium Chloride 20 Meq/100 Ml) 20 meq in 100 mls @ 50 mls/hr IVPB Q2H [facility] Stop: 04/08/18 12:59 Lorazepam (Ativan) 2 mg PO Q4 [facility]; Taper Stop: 04/12/18 22:59 Last Admin: 04/08/18 08:03 Dose: 2 mg Multivitamins (Hexavitamin) 1 tab PO DAILY [facility] Last Admin: 04/06/18 09:49 Dose: 1 tab Nicotine (Nicoderm Cq) 1 patch TD DAILY [facility] Last Admin: 04/07/18 11:24 Dose: 1 patch Pantoprazole Sodium (Protonix Inj) 40 mg IVP Q12H [facility] Last Admin: 04/08/18 05:35 Dose: 40 mg Thiamine HCl (Vitamin B1 Tab) 100 mg PO DAILY [facility] Last Admin: 04/06/18 09:49 Dose: 100 mg Trazodone HCl (Desyrel) 100 mg PO HS PRN PRN Reason: Insomnia - Labs Labs: 04/08/18 06:00 04/08/18 06:00 PT 12.3 SECONDS (9.7-12.2) H 04/07/18 06:24 INR 1.1 04/07/18 06:24 - Constitutional Appears: Non-toxic, No Acute Distress - Head Exam Head Exam: NORMAL INSPECTION - Eye Exam Additional comments: eyes crust - ENT Exam ENT Exam: Mucous Membranes Moist - Respiratory Exam Respiratory Exam: Clear to Ausculation Bilateral, NORMAL BREATHING PATTERN. absent: Rales, Rhonchi, Wheezes - Cardiovascular Exam Cardiovascular Exam: REGULAR RHYTHM, +S1, +S2 - GI/Abdominal Exam GI & Abdominal Exam: Soft, Normal Bowel Sounds. absent: Distended, Firm, Guarding, Rigid, Tenderness, Rebound - Extremities Exam Extremities Exam: absent: Pedal Edema, Tenderness - Neurological Exam Neurological Exam: Alert, Awake - Psychiatric Exam Psychiatric exam: Normal Affect, Normal Mood - Skin Skin Exam: Dry, Normal Color, Warm Assessment and Plan (1) Alcohol abuse Status: Acute (2) Alcohol intoxication Status: Acute (3) Rectal bleeding Status: Acute (4) Prophylactic measure Status: Acute Attending/Attestation - Attestation I have personally seen and examined this patient.: Yes I have fully participated in the care of the patient.: Yes I have reviewed all pertinent clinical information, including history, physical exam and plan: Yes Notes (Text): Assessment/Plan 1) Possible Delirium tremens Alcohol Abuse Alcohol Withdrawal Assessment/Plan * From 04/07/18 project management, patient required Ativan 14mg IV total given tachycardia, restlessness, hallucinations * Discussed with ICU 04/07/18, transferred to the unit for sedation * Patient placed on Precedex and with 1:1 at bedside * Patient is on Ativan taper * Discussed with psych 04/07/18 who is aware * Patient is on Banana bag * [facility] protocol 2) Alcoholic Hepatitis Transaminitis Assessment/Plan * Patient is heavy alcohol user * Abdominal US ordered * tylenol <10 * alcohol 485 * hepatitis panel: negative * Abdominal US (04/07/18): increased echogenicity of the hepatic parenchymal cortex suggestive for fatty infiltration versus hepatic parenchymal disease. limited visualization of the pancreas. limited visualization of the aorta and IVC * Maddrey's Discriminant Function for Alcoholic Hepatitis: 2.4 good prognosis * Patient is on Precedez drip * Fall precautions * Tremor is significantly less present at bedside 3) Rectal Bleeding Assessment/Plan * monitor on telemetry (transferred out from [facility]) * gi consult * pending * NPO * repeat blood work * protonix 40mg IV Q12H * Observed patient's toilet bowl noted blood no clots observed as well as multiple toilet tissues noted for blood streaks on 04/06/18 4) Thrombocytopenia Assessment/Plan * suspect secondary to alcohol effect on bone marrow suppression * Abdominal US (04/07/18): increased echogenicity of the hepatic parenchymal cortex suggestive for fatty infiltration versus hepatic parenchymal disease. limited visualization of the pancreas. 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 * B12: >1000 * Folate: >20.0 * Iron: 126 * TIBC: 344 * iron saturation: 38% * Ferritin: 1116 6) Suicidal attempt Depression Assessment/Plan * management per psych * Lexapro 5mg PO daily * 1:1 ordered 7) Hypokalemia Assessment/Plan * monitor and replete 8) Hypomagnesium Assessment/Plan * monitor and replete 9) Tobacco Abuse Assessment/Plan * Nicoderm patch daily 10) Leukocytosis Assessment/Plan * Order for portable chest xray, baseline blood cultures X2 * May consider Zosyn to cover * patient remains afebrile 11) Prophylactic measure * Transferred to ICU for suspected DTS given heavy Ativan requirement 04/07/18 need to sedate patient * [facility] protocol * fall precautions * protonic 40mg IV Q12H * Seizure precautions * 1:1 * NS 125cc/hr
[2018-04-08] MEDS: Magnesium Sulfate 1 gm in D5W 1 GM/100 ML BAG IVPB SCH ×2 (08:35→09:44)
[2018-04-08 08:43] LABS: BANDS 2 % (0-2); EOSINOPHIL 1 % (0-4); LYMPHOCYTE 12 % (20-40); MONOCYTE 4 % (0-10); NEUTROPHIL 81 % (50-75); TOTAL CELLS COUNTED 100
[2018-04-08 08:44] LABS: PLATELET ESTIMATE DECREASED (NORMAL)
[2018-04-08 08:45] LABS: GIANT PLATELETS PRESENT; LARGE PLATELETS PRESENT; POLYCHROMIC SLIGHT
[2018-04-08 08:46] LABS: TARGET CELLS SLIGHT
[2018-04-08] MEDS: Aritificial Tears (15ml) OU SCH ×2 (09:44→18:04)
[2018-04-08 09:46] LABS: URINE BILIRUBIN NEGATIVE (NEGATIVE); URINE BLOOD NEGATIVE (NEGATIVE); URINE CLARITY Clear (Clear); URINE COLOR Amber (YELLOW); URINE GLUCOSE (UA) NORMAL (Normal); URINE LEUKOCYTE ESTERASE NEG Leu/uL (Negative); URINE PROTEIN NEGATIVE (NEGATIVE)
[2018-04-08] MEDS ORDERED: Potassium Chloride 20 mEq ER Tab PO ONE (11:00)
--- NOTE | 2018-04-08 11:40 | CP.CCUPN ---
<Silvestre Mart S - Last Filed: 04/08/18 17:42> CCU Subjective - Physician Review Critical Care Time Spent (in minutes): 40 CCU Objective - Vital Signs / Intake & Output Vital Signs (Last 4 hours): Vital Signs Pulse Resp BP Pulse Ox 04/08/18 17:00 93 H 16 97 04/08/18 16:42 77 18 149/92 H 90 L 04/08/18 16:00 79 17 100 04/08/18 15:43 75 18 131/89 98 04/08/18 15:00 75 20 97 04/08/18 14:42 127/88 04/08/18 14:00 79 22 95 Intake and Output (Last 8hrs): Intake & Output 04/08/18 04/08/18 04/08/18 06:59 14:59 22:59 Intake Total 1268.0 1052.2 397.2 Output Total 1175 500 Balance 1268.0 -122.8 -102.8 Intake: IV 157 43 Intake, IV Amount 1111.0 1009.2 397.2 Left Upper arm 111.0 59.2 22.2 Right Hand 1000 950 375 Output: Urine 1175 500 Condom 575 Urine, Voided 600 500 Other: # Bowel Movements 0 0 - Medications Active Medications: Active Medications Generic Name Dose Route Start Last Admin Trade Name Freq PRN Reason Stop Dose Admin Artificial Tears 0 ml 04/08/18 10:00 04/08/18 09:44 Artificial Tears OU 1 drop BID HALLE Administration Clonidine HCl 0.1 mg 04/05/18 00:06 Catapres PO Q4H PRN Symptoms of alcohol withdrawl Escitalopram Oxalate 5 mg 04/05/18 11:00 04/08/18 09:43 Lexapro PO 5 mg DAILY HALLE Administration Folic Acid 1 mg 04/05/18 10:00 04/06/18 09:49 Folic Acid PO 1 mg DAILY HALLE Administration Gabapentin 100 mg 04/06/18 14:00 04/08/18 17:19 Neurontin PO 100 mg TID HALLE Administration Dexmedetomidine HCl 200 mcg/ 50 mls @ 2.95 mls/hr 04/07/18 08:59 04/08/18 13:25 Sodium Chloride IV 0.5 mcg/kg/hr TITR PRN 7.37 mls/hr Agitation Administration Protocol 0.2 MCG/KG/HR Sodium Chloride 1,000 mls @ 125 mls/hr 04/07/18 18:00 04/08/18 09:45 Sodium Chloride 0.9% IV Not Given .Q8H HALLE Multivitamins/Vitamin C 10 ml/ 1,011.2 mls @ 125 mls/hr 04/08/18 21:00 Thiamine HCl 100 mg/ Folic IV 04/10/18 05:06 Acid 1 mg/ Sodium Chloride Q24H HALLE Lorazepam 2 mg 04/07/18 23:00 04/08/18 17:19 Ativan PO 04/12/18 22:59 2 mg Q4 HALLE Administration Taper Multivitamins 1 tab 04/05/18 10:00 04/06/18 09:49 Hexavitamin PO 1 tab DAILY HALLE Administration Nicotine 1 patch 04/07/18 10:00 04/08/18 09:44 Nicoderm Cq TD 1 patch DAILY HALLE Administration Pantoprazole Sodium 40 mg 04/06/18 18:30 04/08/18 05:35 Protonix Inj IVP 40 mg Q12H HALLE Administration Thiamine HCl 100 mg 04/05/18 10:00 04/06/18 09:49 Vitamin B1 Tab PO 100 mg DAILY HALLE Administration Trazodone HCl 100 mg 04/05/18 10:47 Desyrel PO HS PRN Insomnia - Patient Studies Lab Studies: Microbiology Studies 04/07/18 11:56 MRSA Culture (Admit) - Final Nose MRSA NOT DETECTED Lab Studies 04/08/18 04/08/18 04/08/18 Range/Units 09:31 06:00 06:00 WBC 12.4 H (4.8-10.8) K/uL RBC 3.62 L (4.40-5.90) Mil/uL Hgb 13.5 (12.0-18.0) g/dL Hct 40.1 (35.0-51.0) % MCV 110.8 H (80.0-94.0) fL MCH 37.3 H (27.0-31.0) pg MCHC 33.7 (33.0-37.0) g/dL RDW 12.9 (11.5-14.5) % Plt Count 86 L (130-400) K/uL MPV 12.4 H (7.2-11.7) fL Neut % (Auto) 82.7 H (50.0-75.0) % Lymph % (Auto) 8.5 L (20.0-40.0) % [place] % (Auto) 6.9 (0.0-10.0) % Eos % (Auto) 1.5 (0.0-4.0) % Baso % (Auto) 0.4 (0.0-2.0) % Neut # (Auto) 10.3 H (1.8-7.0) K/uL Lymph # (Auto) 1.1 (1.0-4.3) K/uL [place] # (Auto) 0.9 H (0.0-0.8) K/uL Eos # (Auto) 0.2 (0.0-0.7) K/uL Baso # (Auto) 0.0 (0.0-0.2) K/uL Neutrophils % (Manual) 81 H (50-75) % Band Neutrophils % 2 (0-2) % Lymphocytes % (Manual) 12 L (20-40) % Monocytes % (Manual) 4 (0-10) % Eosinophils % (Manual) 1 (0-4) % Platelet Estimate Decreased L (NORMAL) Large Platelets Present Giant Platelets Present Polychromasia Slight Macrocytosis (manual) Slight Target Cells Slight Sodium 139 (132-148) mmol/L Potassium 3.2 L (3.6-5.2) mmol/L Chloride 104 (98-107) mmol/L Carbon Dioxide 24 (22-30) mmol/L Anion Gap 14 (10-20) BUN 12 (9-20) mg/dL Creatinine 0.7 L (0.8-1.5) mg/dL Est GFR ( Amer) > 60 Est GFR (Non-Af Amer) > 60 Random Glucose 97 (75-110) mg/dL Calcium 8.9 (8.6-10.4) mg/dl Phosphorus 3.5 (2.5-4.5) mg/dL Magnesium 1.4 L (1.6-2.3) mg/dL Total Bilirubin 1.7 H (0.2-1.3) mg/dL AST 635 H (17-59) U/L ALT 567 H (21-72) U/L Alkaline Phosphatase 94 (38-126) U/L Total Protein 8.1 (6.3-8.3) g/dL Albumin 4.4 (3.5-5.0) g/dL Globulin 3.7 (2.2-3.9) gm/dL Albumin/Globulin Ratio 1.2 (1.0-2.1) Urine Color [place]ilsa (YELLOW) Urine Clarity Clear (Clear) Urine pH 5.0 (5.0-8.0) Ur Specific [place]room 1.016 (1.003-1.030) Urine Protein Negative (NEGATIVE) mg/dL Urine Glucose (UA) Normal (Normal) mg/dL Urine Ketones Trace (NEGATIVE) mg/dL Urine Blood Negative (NEGATIVE) Urine Nitrate Negative (NEGATIVE) Urine Bilirubin Negative (NEGATIVE) Urine Urobilinogen 4.0 (0.2-1.0) mg/dL Ur Leukocyte Esterase Neg (Negative) Beth/uL Urine WBC (Auto) 1 (0-5) /hpf Urine RBC (Auto) < 1 (0-3) /hpf Laboratory Results - last 24 hr 04/08/18 04/08/18 04/08/18 06:00 06:00 09:31 WBC 12.4 H RBC 3.62 L Hgb 13.5 Hct 40.1 MCV 110.8 H MCH 37.3 H MCHC 33.7 RDW 12.9 Plt Count 86 L MPV 12.4 H Neut % (Auto) 82.7 H Lymph % (Auto) 8.5 L [place] % (Auto) 6.9 Eos % (Auto) 1.5 Baso % (Auto) 0.4 Neut # (Auto) 10.3 H Lymph # (Auto) 1.1 [place] # (Auto) 0.9 H Eos # (Auto) 0.2 Baso # (Auto) 0.0 Neutrophils % (Manual) 81 H Band Neutrophils % 2 Lymphocytes % (Manual) 12 L Monocytes % (Manual) 4 Eosinophils % (Manual) 1 Platelet Estimate Decreased L Large Platelets Present Giant Platelets Present Polychromasia Slight Macrocytosis (manual) Slight Target Cells Slight Sodium 139 Potassium 3.2 L Chloride 104 Carbon Dioxide 24 Anion Gap 14 BUN 12 Creatinine 0.7 L Est GFR ( Amer) > 60 Est GFR (Non-Af Amer) > 60 Random Glucose 97 Calcium 8.9 Phosphorus 3.5 Magnesium 1.4 L Total Bilirubin 1.7 H AST 635 H ALT 567 H Alkaline Phosphatase 94 Total Protein 8.1 Albumin 4.4 Globulin 3.7 Albumin/Globulin Ratio 1.2 Urine Color [place]a Urine Clarity Clear Urine pH 5.0 Ur Specific [place] 1.016 Urine Protein Negative Urine Glucose (UA) Normal Urine Ketones Trace Urine Blood Negative Urine Nitrate Negative Urine Bilirubin Negative Urine Urobilinogen 4.0 Ur Leukocyte Esterase Neg Urine WBC (Auto) 1 Urine RBC (Auto) < 1 Radiology Impressions: Radiology Impressions Chest X-Ray 04/08/18 08:35 IMPRESSION: No focal consolidation. Critical Care Progress Note - Nutrition Nutrition: Nutrition Category Date Time Status NPO Diet [DIET] Diets 04/06/18 Dinner Active Attending/Attestation - Attestation I have personally seen and examined this patient.: Yes I have fully participated in the care of the patient.: Yes I have reviewed all pertinent clinical information: Yes Notes (Text): 04/08/18 17:42 Patient seen and examined in the intensive care unit. On Precedex drip Condition improving Continue Ativan as needed continue banana bag <Manuel Elizondo - Last Filed: 04/08/18 21:06> CCU Subjective - Physician Review Subjective (Free Text): Critical care progress note for Dr. Mart. Patient seen and examined at bedside. No acute events reported overnight. Patient currently laying in bed comfortably, arousable. Patient still has hand tremor on arousing. Unable to obtain ROS as patient is currently on precedex for DTs. Precedex currently is being tapered off. 04/08/18 20:52 04/08/18 20:55 CCU Objective - Vital Signs / Intake & Output Intake and Output (Last 8hrs): Intake & Output 04/07/18 04/08/18 04/08/18 22:59 06:59 14:59 Intake Total 1097.5 1268.0 587.0 Output Total 875 Balance 1097.5 1268.0 -288.0 Intake: IV 200.0 157 Intake, IV Amount 897.5 1111.0 587.0 Left Upper arm 147.5 111.0 37.0 Right Hand 750 1000 550 Output: Urine 875 Condom 575 Urine, Voided 300 Other: Voiding Method Incontinent # Bowel Movements 0 0 0 - Physical Exam Physical Exam Limitations: Positive for: Other (intubated) Head: Positive for: Atraumatic, Normocephalic Respiratory/Chest: Positive for: Clear to Auscultation, Good Air Exchange. Negative for: Accessory Muscle Use, Wheezes Cardiovascular: Positive for: Normal S1, S2. Negative for: Murmurs Abdomen: Positive for: Normal Bowel Sounds. Negative for: Tenderness Upper Extremity: Negative for: Cyanosis, Edema Lower Extremity: Positive for: Normal Inspection. Negative for: Edema Neurological: Negative for: GCS=15 Skin: Positive for: Warm, Dry Psychiatric: Negative for: Oriented x 3 - Medications Active Medications: Active Medications Generic Name Dose Route Start Last Admin Trade Name Freq PRN Reason Stop Dose Admin Artificial Tears 0 ml 04/08/18 10:00 04/08/18 09:44 Artificial Tears OU 1 drop BID HALLE Administration Clonidine HCl 0.1 mg 04/05/18 00:06 Catapres PO Q4H PRN Symptoms of alcohol withdrawl Escitalopram Oxalate 5 mg 04/05/18 11:00 04/08/18 09:43 Lexapro PO 5 mg DAILY HALLE Administration Folic Acid 1 mg 04/05/18 10:00 04/06/18 09:49 Folic Acid PO 1 mg DAILY HALLE Administration Gabapentin 100 mg 04/06/18 14:00 04/08/18 09:44 Neurontin PO 100 mg TID HALLE Administration Dexmedetomidine HCl 200 mcg/ 50 mls @ 2.95 mls/hr 04/07/18 08:59 04/08/18 06:00 Sodium Chloride IV 0.5 mcg/kg/hr TITR PRN 7.37 mls/hr Agitation Titration Protocol 0.2 MCG/KG/HR Sodium Chloride 1,000 mls @ 125 mls/hr 04/07/18 18:00 04/08/18 09:45 Sodium Chloride 0.9% IV Not Given .Q8H HALLE Multivitamins/Vitamin C 10 ml/ 1,011.2 mls @ 125 mls/hr 04/08/18 21:00 Thiamine HCl 100 mg/ Folic IV 04/10/18 05:06 Acid 1 mg/ Sodium Chloride Q24H HALLE Lorazepam 2 mg 04/07/18 23:00 04/08/18 11:31 Ativan PO 04/12/18 22:59 2 mg Q4 HALLE Administration Taper Multivitamins 1 tab 04/05/18 10:00 04/06/18 09:49 Hexavitamin PO 1 tab DAILY HALLE Administration Nicotine 1 patch 04/07/18 10:00 04/08/18 09:44 Nicoderm Cq TD 1 patch DAILY HALLE Administration Pantoprazole Sodium 40 mg 04/06/18 18:30 04/08/18 05:35 Protonix Inj IVP 40 mg Q12H HALLE Administration Thiamine HCl 100 mg 04/05/18 10:00 04/06/18 09:49 Vitamin B1 Tab PO 100 mg DAILY HALLE Administration Trazodone HCl 100 mg 04/05/18 10:47 Desyrel PO HS PRN Insomnia - Patient Studies Lab Studies: Lab Studies 04/08/18 04/08/18 04/08/18 Range/Units 09:31 06:00 06:00 WBC 12.4 H (4.8-10.8) K/uL RBC 3.62 L (4.40-5.90) Mil/uL Hgb 13.5 (12.0-18.0) g/dL Hct 40.1 (35.0-51.0) % MCV 110.8 H (80.0-94.0) fL MCH 37.3 H (27.0-31.0) pg MCHC 33.7 (33.0-37.0) g/dL RDW 12.9 (11.5-14.5) % Plt Count 86 L (130-400) K/uL MPV 12.4 H (7.2-11.7) fL Neut % (Auto) 82.7 H (50.0-75.0) % Lymph % (Auto) 8.5 L (20.0-40.0) % [place] % (Auto) 6.9 (0.0-10.0) % Eos % (Auto) 1.5 (0.0-4.0) % Baso % (Auto) 0.4 (0.0-2.0) % Neut # (Auto) 10.3 H (1.8-7.0) K/uL Lymph # (Auto) 1.1 (1.0-4.3) K/uL [place] # (Auto) 0.9 H (0.0-0.8) K/uL Eos # (Auto) 0.2 (0.0-0.7) K/uL Baso # (Auto) 0.0 (0.0-0.2) K/uL Neutrophils % (Manual) 81 H (50-75) % Band Neutrophils % 2 (0-2) % Lymphocytes % (Manual) 12 L (20-40) % Monocytes % (Manual) 4 (0-10) % Eosinophils % (Manual) 1 (0-4) % Platelet Estimate Decreased L (NORMAL) Large Platelets Present Giant Platelets Present Polychromasia Slight Macrocytosis (manual) Slight Target Cells Slight Sodium 139 (132-148) mmol/L Potassium 3.2 L (3.6-5.2) mmol/L Chloride 104 (98-107) mmol/L Carbon Dioxide 24 (22-30) mmol/L Anion Gap 14 (10-20) BUN 12 (9-20) mg/dL Creatinine 0.7 L (0.8-1.5) mg/dL Est GFR ( Amer) > 60 Est GFR (Non-Af Amer) > 60 Random Glucose 97 (75-110) mg/dL Calcium 8.9 (8.6-10.4) mg/dl Phosphorus 3.5 (2.5-4.5) mg/dL Magnesium 1.4 L (1.6-2.3) mg/dL Total Bilirubin 1.7 H (0.2-1.3) mg/dL AST 635 H (17-59) U/L ALT 567 H (21-72) U/L Alkaline Phosphatase 94 (38-126) U/L Total Protein 8.1 (6.3-8.3) g/dL Albumin 4.4 (3.5-5.0) g/dL Globulin 3.7 (2.2-3.9) gm/dL Albumin/Globulin Ratio 1.2 (1.0-2.1) Urine Color [place]ilsa (YELLOW) Urine Clarity Clear (Clear) Urine pH 5.0 (5.0-8.0) Ur Specific [place] 1.016 (1.003-1.030) Urine Protein Negative (NEGATIVE) mg/dL Urine Glucose (UA) Normal (Normal) mg/dL Urine Ketones Trace (NEGATIVE) mg/dL Urine Blood Negative (NEGATIVE) Urine Nitrate Negative (NEGATIVE) Urine Bilirubin Negative (NEGATIVE) Urine Urobilinogen 4.0 (0.2-1.0) mg/dL Ur Leukocyte Esterase Neg (Negative) Beth/uL Urine WBC (Auto) 1 (0-5) /hpf Urine RBC (Auto) < 1 (0-3) /hpf Laboratory Results - last 24 hr 04/08/18 04/08/18 04/08/18 06:00 06:00 09:31 WBC 12.4 H RBC 3.62 L Hgb 13.5 Hct 40.1 MCV 110.8 H MCH 37.3 H MCHC 33.7 RDW 12.9 Plt Count 86 L MPV 12.4 H Neut % (Auto) 82.7 H Lymph % (Auto) 8.5 L [place] % (Auto) 6.9 Eos % (Auto) 1.5 Baso % (Auto) 0.4 Neut # (Auto) 10.3 H Lymph # (Auto) 1.1 [place] # (Auto) 0.9 H Eos # (Auto) 0.2 Baso # (Auto) 0.0 Neutrophils % (Manual) 81 H Band Neutrophils % 2 Lymphocytes % (Manual) 12 L Monocytes % (Manual) 4 Eosinophils % (Manual) 1 Platelet Estimate Decreased L Large Platelets Present Giant Platelets Present Polychromasia Slight Macrocytosis (manual) Slight Target Cells Slight Sodium 139 Potassium 3.2 L Chloride 104 Carbon Dioxide 24 Anion Gap 14 BUN 12 Creatinine 0.7 L Est GFR ( Amer) > 60 Est GFR (Non-Af Amer) > 60 Random Glucose 97 Calcium 8.9 Phosphorus 3.5 Magnesium 1.4 L Total Bilirubin 1.7 H AST 635 H ALT 567 H Alkaline Phosphatase 94 Total Protein 8.1 Albumin 4.4 Globulin 3.7 Albumin/Globulin Ratio 1.2 Urine Color [place]a Urine Clarity Clear Urine pH 5.0 Ur Specific [place] 1.016 Urine Protein Negative Urine Glucose (UA) Normal Urine Ketones Trace Urine Blood Negative Urine Nitrate Negative Urine Bilirubin Negative Urine Urobilinogen 4.0 Ur Leukocyte Esterase Neg Urine WBC (Auto) 1 Urine RBC (Auto) < 1 Radiology Impressions: Radiology Impressions Abdomen Ultrasound 04/07/18 10:00 IMPRESSION: 1. Increased echogenicity of the hepatic parenchymal cortex suggestive for fatty infiltration versus hepatic parenchymal disease. Clinical correlation. 2. Limited visualization of the pancreas. 3. Limited visualization of the aorta and IVC. Fingerstick Blood Sugar Results: 77 Critical Care Progress Note - Nutrition Nutrition: Nutrition Category Date Time Status NPO Diet [DIET] Diets 04/06/18 Dinner Active Assessment/Plan - Assessment and Plan (Free Text) Assessment: Patient is a 52 year old male with PMHx of Depression and Alcohol Use Disorder, who was transferred to the ICU for severe agitation secondary to delrium tremens, requiring heavy ativan use for sedation. Patient was started on precedex drip 04/07. Today, patient precedex drip is being tapered down with ativan PO taper. Plan: Neuro - Sleeping, NAD - start Precedex for sedation; currently at 0.5mcg - PO ativan taper - seizure precautions - Aspiration precautions Cardiac - Tachycardia resolved - Continue to monitor Pulm - Potassium 3.3 today - Replete Potassium - daily banana bag GI - Transaminitis AST/ALT 674/477 (04/07) - T.[place] 1.9 - Hepatitis panel negative - abdominal u/s 04/07: fatty infiltration vs parencymal disease - GI bleed (streaks on toilet tissue per chart review) - Protonix 40 mg Q12 for GI ppx 03/28 GI bleed - f/u fecal occult - f/u GI recs - condom cath in place Heme - H/H 14/38.9 - MCV 110 - Retic 0.4 - Platelet count stable in 80s - likely due to bone marrow suppression due to ETOH abuse ID - elevated WBC; however, afebrile - will continue to monitor Psych - ativan taper - avoid librium taper due to transaminitis - Banana bag daily - NS 125 ml/hr - aspiration precautinons - seizure precautions - per psych: - Nicoderm patch for Nicotine use disorder - Trazodone 100mg PO PRN - Lexapro 5mg - Gabapentin 100mg TID PPx - SCDs for DVT ppx; heparin contraindicated due to GI bleed - Protonix for GI ppx
--- NOTE | 2018-04-08 12:43 | RAD ---
HISTORY: elevated white count, alcohol hx COMPARISON: Chest x-ray performed 11/22/15 TECHNIQUE: Chest, one view. FINDINGS: LUNGS: Hypoinflation. No focal consolidation. Please note that chest x-ray has limited sensitivity for the detection of pulmonary masses. PLEURA: No significant pleural effusion identified. No definite pneumothorax . CARDIOVASCULAR: Heart size appears top-normal. No significant atherosclerotic calcification present. OSSEOUS STRUCTURES: Mild degenerative changes. VISUALIZED UPPER ABDOMEN: Unremarkable. OTHER FINDINGS: None. IMPRESSION: No focal consolidation.
[2018-04-08] MEDS: Multivitamin (MVI) 10 ML, Thiamine 100 MG, Folic Acid 1 MG in Sodium Chloride 0.9% 1,00... IV SCH ×2 (18:05→20:17)
[2018-04-09] MEDS: Sodium Chloride 0.9% 1,000 ML IV SCH ×3 (02:15→11:22)
[2018-04-09] MEDS: Dexmedetomidine Hydrochloride 200 MCG in Sodium Chloride 0.9% 48 ML IV PRN ×4 (05:39→22:10)
[2018-04-09 06:20] LABS: BASO % 0.5 % (0.0-2.0); EOS # 0.2 K/uL (0.0-0.7); EOS % 2.4 % (0.0-4.0); HEMOGLOBIN 13.9 g/dL (12.0-18.0); LYMPH # 1.6 K/uL (1.0-4.3); LYMPH % 18.3 % (20.0-40.0); MEAN CELL VOLUME 110.9 fL (80.0-94.0); MEAN CORPUSCULAR HEMOGLOBIN 37.8 pg (27.0-31.0); MEAN PLATELET VOLUME 11.5 fL (7.2-11.7); MONO % 11.1 % (0.0-10.0); NEUT # 5.9 K/uL (1.8-7.0); NEUT % 67.7 % (50.0-75.0); NRBC % 0.1 % (0.0-2.0); RBC 3.68 Mil/uL (4.40-5.90); RED CELL DISTRIBUTION WIDTH 12.8 % (11.5-14.5); WHITE BLOOD COUNT 8.7 K/uL (4.8-10.8)
[2018-04-09 06:35] LABS: ALB/GLOB RATIO 1.2 (1.0-2.1); ALBUMIN 4.4 g/dL (3.5-5.0); ALT/SGPT 351 U/L (21-72); AST/SGOT 229 U/L (17-59); BLOOD UREA NITROGEN 10 mg/dL (9-20); CALCIUM 8.8 mg/dl (8.6-10.4); GFR NON-AFRICAN AMERICAN > 60
[2018-04-09] MEDS ORDERED: Potassium Chloride 20 mEq ER Tab PO ONE (08:00)
[2018-04-09] MEDS ORDERED: Bisacodyl 5mg EC Tab PO ONE (08:30)
[2018-04-09] MEDS: Magnesium Sulfate 1 gm in D5W 1 GM/100 ML BAG IVPB SCH ×2 (08:50→09:17)
[2018-04-09] MEDS: Aritificial Tears (15ml) OU SCH ×2 (09:22→17:56)
[2018-04-09] MEDS ORDERED: Pneumococcal 23-Valent Vaccine IM ONE (10:00)
[2018-04-09] MEDS ORDERED: Multivitamin (MVI) 10 ML, Thiamine 100 MG, Folic Acid 1 MG in Sodium Chloride 0.9% 1,00... IV ONE (11:10)
--- NOTE | 2018-04-09 11:11 | CP.CCUPN ---
CCU Subjective - Physician Review Subjective (Free Text): Critical care progress note for Dr. Linder Patient seen and examined at bedside today. Patient was resting comfortably in bed. No acute events over night. Patient complains of pain all over. Patient continues to have tremors although less significant than previously noted. Unable to obtain ROS as patient is currently on precedex for DTs. Precedex currently is being tapered off. CCU Objective - Vital Signs / Intake & Output Vital Signs (Last 4 hours): Vital Signs Pulse Resp BP Pulse Ox 04/09/18 10:00 93 H 27 H 94 L 04/09/18 09:42 93 H 29 H 116/77 94 L 04/09/18 09:00 97 H 26 H 93 L 04/09/18 08:42 108 H 14 122/75 100 04/09/18 08:00 91 H 19 97 04/09/18 07:42 77 20 153/97 H 94 L Intake and Output (Last 8hrs): Intake & Output 04/08/18 04/09/18 04/09/18 22:59 06:59 14:59 Intake Total 1109.2 1109.2 1029.6 Output Total 1000 1100 300 Balance 109.2 9.2 729.6 Intake: IV 50 50 Intake, IV Amount 1059.2 1059.2 529.6 Left Upper arm 59.2 59.2 29.6 Right Hand 1000 1000 500 Oral 500 Output: Urine 1000 1100 300 Urine, Voided 1000 1100 300 Other: # Voids Urine, Voided 1 1 - Physical Exam Head: Positive for: Atraumatic, Normocephalic Conjunctiva: Positive for: Normal Respiratory/Chest: Positive for: Clear to Auscultation, Good Air Exchange. Negative for: Accessory Muscle Use, Wheezes Cardiovascular: Positive for: Normal S1, S2. Negative for: Murmurs Abdomen: Positive for: Normal Bowel Sounds. Negative for: Tenderness Upper Extremity: Negative for: Cyanosis, Edema Lower Extremity: Positive for: Normal Inspection. Negative for: Edema Neurological: Negative for: GCS=15 Skin: Positive for: Warm, Dry Psychiatric: Positive for: Alert, Other. Negative for: Oriented x 3 Other physical findings (Free Text): arousable - Medications Active Medications: Active Medications Generic Name Dose Route Start Last Admin Trade Name Freq PRN Reason Stop Dose Admin Artificial Tears 0 ml 04/08/18 10:00 04/09/18 09:22 Artificial Tears OU 1 drop BID HALLE Administration Bisacodyl 10 mg 04/10/18 06:00 Dulcolax PO 04/10/18 06:01 ONCE ONE Clonidine HCl 0.1 mg 04/05/18 00:06 04/09/18 05:39 Catapres PO 0.1 mg Q4H PRN Administration Symptoms of alcohol withdrawl Escitalopram Oxalate 5 mg 04/05/18 11:00 04/09/18 09:18 Lexapro PO 5 mg DAILY HALLE Administration Folic Acid 1 mg 04/05/18 10:00 04/06/18 09:49 Folic Acid PO 1 mg DAILY HALLE Administration Gabapentin 100 mg 04/06/18 14:00 04/09/18 09:18 Neurontin PO 100 mg TID HALLE Administration Dexmedetomidine HCl 200 mcg/ 50 mls @ 2.95 mls/hr 04/07/18 08:59 04/09/18 05:39 Sodium Chloride IV 0.5 mcg/kg/hr TITR PRN 7.37 mls/hr Agitation Administration Protocol 0.2 MCG/KG/HR Sodium Chloride 1,000 mls @ 125 mls/hr 04/07/18 18:00 04/09/18 10:19 Sodium Chloride 0.9% IV Not Given .Q8H HALLE Multivitamins/Vitamin C 10 ml/ 1,011.2 mls @ 125 mls/hr 04/08/18 21:00 04/08/18 20:17 Thiamine HCl 100 mg/ Folic IV 04/10/18 05:06 Not Given Acid 1 mg/ Sodium Chloride Q24H HALLE Lorazepam 2 mg 04/07/18 23:00 04/09/18 08:26 Ativan PO 04/12/18 22:59 2 mg Q4 HALLE Administration Taper Multivitamins 1 tab 04/05/18 10:00 04/06/18 09:49 Hexavitamin PO 1 tab DAILY HALLE Administration Nicotine 1 patch 04/07/18 10:00 04/09/18 09:18 Nicoderm Cq TD 1 patch DAILY HALLE Administration Pantoprazole Sodium 40 mg 04/06/18 18:30 04/09/18 05:40 Protonix Inj IVP 40 mg Q12H HALLE Administration Thiamine HCl 100 mg 04/05/18 10:00 04/06/18 09:49 Vitamin B1 Tab PO 100 mg DAILY HALLE Administration Trazodone HCl 100 mg 04/05/18 10:47 Desyrel PO HS PRN Insomnia - Patient Studies Lab Studies: Microbiology Studies 04/08/18 09:31 Urine Culture - Final Urine,Catheterized No Growth (<1,000 CFU/ML) 04/08/18 09:31 Blood Culture - Preliminary Blood NO GROWTH AFTER 24 HOURS 04/08/18 09:31 Blood Culture - Preliminary Blood NO GROWTH AFTER 24 HOURS 04/07/18 11:56 MRSA Culture (Admit) - Final Nose MRSA NOT DETECTED Lab Studies 04/09/18 04/09/18 Range/Units 06:12 06:12 WBC 8.7 (4.8-10.8) K/uL RBC 3.68 L (4.40-5.90) Mil/uL Hgb 13.9 (12.0-18.0) g/dL Hct 40.8 (35.0-51.0) % MCV 110.9 H (80.0-94.0) fL MCH 37.8 H (27.0-31.0) pg MCHC 34.0 (33.0-37.0) g/dL RDW 12.8 (11.5-14.5) % Plt Count 99 L (130-400) K/uL MPV 11.5 (7.2-11.7) fL Neut % (Auto) 67.7 (50.0-75.0) % Lymph % (Auto) 18.3 L (20.0-40.0) % [place] % (Auto) 11.1 H (0.0-10.0) % Eos % (Auto) 2.4 (0.0-4.0) % Baso % (Auto) 0.5 (0.0-2.0) % Neut # (Auto) 5.9 (1.8-7.0) K/uL Lymph # (Auto) 1.6 (1.0-4.3) K/uL [place] # (Auto) 1.0 H (0.0-0.8) K/uL Eos # (Auto) 0.2 (0.0-0.7) K/uL Baso # (Auto) 0.0 (0.0-0.2) K/uL Sodium 137 (132-148) mmol/L Potassium 3.3 L (3.6-5.2) mmol/L Chloride 103 (98-107) mmol/L Carbon Dioxide 20 L (22-30) mmol/L Anion Gap 17 (10-20) BUN 10 (9-20) mg/dL Creatinine 0.6 L (0.8-1.5) mg/dL Est GFR ( Amer) > 60 Est GFR (Non-Af Amer) > 60 Random Glucose 78 (75-110) mg/dL Calcium 8.8 (8.6-10.4) mg/dl Phosphorus 2.6 (2.5-4.5) mg/dL Magnesium 1.5 L (1.6-2.3) mg/dL Total Bilirubin 1.3 (0.2-1.3) mg/dL AST 229 H D (17-59) U/L ALT 351 H D (21-72) U/L Alkaline Phosphatase 83 (38-126) U/L Total Protein 8.0 (6.3-8.3) g/dL Albumin 4.4 (3.5-5.0) g/dL Globulin 3.6 (2.2-3.9) gm/dL Albumin/Globulin Ratio 1.2 (1.0-2.1) Laboratory Results - last 24 hr 04/09/18 04/09/18 06:12 06:12 WBC 8.7 RBC 3.68 L Hgb 13.9 Hct 40.8 MCV 110.9 H MCH 37.8 H MCHC 34.0 RDW 12.8 Plt Count 99 L MPV 11.5 Neut % (Auto) 67.7 Lymph % (Auto) 18.3 L [place] % (Auto) 11.1 H Eos % (Auto) 2.4 Baso % (Auto) 0.5 Neut # (Auto) 5.9 Lymph # (Auto) 1.6 [place] # (Auto) 1.0 H Eos # (Auto) 0.2 Baso # (Auto) 0.0 Sodium 137 Potassium 3.3 L Chloride 103 Carbon Dioxide 20 L Anion Gap 17 BUN 10 Creatinine 0.6 L Est GFR ( Amer) > 60 Est GFR (Non-Af Amer) > 60 Random Glucose 78 Calcium 8.8 Phosphorus 2.6 Magnesium 1.5 L Total Bilirubin 1.3 AST 229 H D ALT 351 H D Alkaline Phosphatase 83 Total Protein 8.0 Albumin 4.4 Globulin 3.6 Albumin/Globulin Ratio 1.2 Radiology Impressions: Radiology Impressions Chest X-Ray 04/08/18 08:35 IMPRESSION: No focal consolidation. Fingerstick Blood Sugar Results: 77 Review of Systems - Review of Systems Systems not reviewed;Unavailable: Acuity of Condition Critical Care Progress Note - Prophylaxis GI Prophylaxis GI: PPI - Prophylaxis DVT Prophylaxis DVT: SCDs - Nutrition Nutrition: Nutrition Category Date Time Status Liquid Diet [DIET] Diets 04/09/18 Breakfast Active Assessment/Plan - Assessment and Plan (Free Text) Assessment: Patient is a 52 year old male with PMHx of Depression and Alcohol Use Disorder, who was transferred to the ICU for severe agitation secondary to delrium tremens. Patient was started on precedex drip 04/07. Continue to taper precedex drip as patient remains on ativan taper. Plan: Neuro - Alert, oriented to self - continue to taper Precedex down, currently 0.5mcg - seizure precautions - Aspiration precautions Cardiac - Tachycardia - Continue to monitor vitals Pulm - 97% on NC 2L - no current issues Renal - Potassium 3.2 today - Replete Potassium - Magnesium 1.5 - Replete magnesium - continue multivitamins - continue Folic Acid - monitor CMP GI - Transaminitis, downtrending; AST/ALT 151/288 today - T.[place] 1.0 today - Hepatitis panel negative - Ammonia (04/08) 23 - Protonix Q12 for GI ppx 03/28 GI bleed - abdominal u/s 04/07: fatty infiltration vs parencymal disease - Dulcolax x2 for constipation, per GI - Clear liquid diet - condom cath Heme - H/H 12.8/38.1 - Platelet count 110 ID - Afebrile - WBC 10.4 today Psych - Ativan Taper - avoid librium due to transaminitis - per psych: - Nicoderm patch for Nicotine use disorder - Trazodone 100mg PO PRN - Lexapro 5mg - Gabapentin 100mg TID - f/u Psych recs PPx - SCDs for DVT ppx; heparin contraindicated due to GI bleed - Protonix for GI ppx
[2018-04-09 14:55] LABS: BASO % 0.3 % (0.0-2.0); EOS # 0.1 K/uL (0.0-0.7); EOS % 1.4 % (0.0-4.0); HEMOGLOBIN 12.8 g/dL (12.0-18.0); LYMPH # 1.2 K/uL (1.0-4.3); LYMPH % 11.2 % (20.0-40.0); MEAN CELL VOLUME 111.2 fL (80.0-94.0); MEAN CORPUSCULAR HEMOGLOBIN 37.4 pg (27.0-31.0); MEAN CORPUSCULAR HGB CONC 33.7 g/dL (33.0-37.0); MEAN PLATELET VOLUME 11.5 fL (7.2-11.7); MONO # 1.4 K/uL (0.0-0.8); NEUT # 7.6 K/uL (1.8-7.0); NEUT % 73.1 % (50.0-75.0); RBC 3.43 Mil/uL (4.40-5.90); RED CELL DISTRIBUTION WIDTH 13.1 % (11.5-14.5); WHITE BLOOD COUNT 10.4 K/uL (4.8-10.8)
[2018-04-09 15:09] LABS: ALB/GLOB RATIO 1.2 (1.0-2.1); ALBUMIN 4.3 g/dL (3.5-5.0); ALT/SGPT 288 U/L (21-72); AST/SGOT 151 U/L (17-59); BLOOD UREA NITROGEN 12 mg/dL (9-20); CALCIUM 8.9 mg/dl (8.6-10.4); GFR NON-AFRICAN AMERICAN > 60
--- NOTE | 2018-04-09 20:11 | CP.PCM.PN ---
Subjective - Date & Time of Evaluation Date of Evaluation: 04/09/18 Time of Evaluation: 12:15 - Subjective Subjective: Medical Attending Note: Patient seen and examined. Patient reports he feels bad. Denies headache, denies chest pain, denies shortness of breathe, denies abdominal pain, denies nausea, denies vomitting, had one formed bowel movement. Patient is on low dose Precedex and less tremors. Discussed with GI this morning, patient had small bowel movement, advised clear liquids since h.h remains stable. Objective - Vital Signs/Intake and Output Vital Signs (last 24 hours): Temp Pulse Resp BP Pulse Ox 97.4 F L 97 H 25 H 129/86 93 L 04/09/18 08:00 04/09/18 19:00 04/09/18 19:00 04/09/18 19:00 04/09/18 19:00 Intake and Output: 04/09/18 04/10/18 18:59 06:59 Intake Total 2220.58 7 Output Total 700 Balance 1520.58 7 - Medications Medications: Current Medications Artificial Tears (Artificial Tears) 0 ml OU BID [facility] Last Admin: 04/09/18 17:56 Dose: 1 drop Bisacodyl (Dulcolax) 10 mg PO ONCE ONE Stop: 04/10/18 06:01 Clonidine HCl (Catapres) 0.1 mg PO Q4H PRN PRN Reason: Symptoms of alcohol withdrawl Last Admin: 04/09/18 05:39 Dose: 0.1 mg Escitalopram Oxalate (Lexapro) 5 mg PO DAILY [facility] Last Admin: 04/09/18 09:18 Dose: 5 mg Folic Acid (Folic Acid) 1 mg PO DAILY [facility] Last Admin: 04/06/18 09:49 Dose: 1 mg Gabapentin (Neurontin) 100 mg PO TID [facility] Last Admin: 04/09/18 17:50 Dose: 100 mg Dexmedetomidine HCl 200 mcg/ (Sodium Chloride) 50 mls @ 2.95 mls/hr IV TITR PRN; Protocol PRN Reason: Agitation Last Titration: 04/09/18 19:22 Dose: 0 mcg/kg/hr, 0 mls/hr Lorazepam (Ativan) 2 mg PO Q4 [facility]; Taper Stop: 04/12/18 22:59 Last Admin: 04/09/18 16:22 Dose: 2 mg Multivitamins (Hexavitamin) 1 tab PO DAILY [facility] Last Admin: 04/06/18 09:49 Dose: 1 tab Nicotine (Nicoderm Cq) 1 patch TD DAILY [facility] Last Admin: 04/09/18 09:18 Dose: 1 patch Pantoprazole Sodium (Protonix Inj) 40 mg IVP Q12H [facility] Last Admin: 04/09/18 17:51 Dose: 40 mg Potassium Chloride (K-Dur 20 Meq Er Tab) 40 meq PO ONCE ONE Stop: 04/10/18 15:52 Thiamine HCl (Vitamin B1 Tab) 100 mg PO DAILY [facility] Last Admin: 04/06/18 09:49 Dose: 100 mg Trazodone HCl (Desyrel) 100 mg PO HS PRN PRN Reason: Insomnia - Labs Labs: 04/09/18 14:51 04/09/18 14:51 PT 12.3 SECONDS (9.7-12.2) H 04/07/18 06:24 INR 1.1 04/07/18 06:24 - Constitutional Appears: Non-toxic, No Acute Distress - Head Exam Head Exam: NORMAL INSPECTION - Eye Exam Eye Exam: EOMI - ENT Exam ENT Exam: Mucous Membranes Moist - Respiratory Exam Respiratory Exam: Clear to Ausculation Bilateral, NORMAL BREATHING PATTERN - Cardiovascular Exam Cardiovascular Exam: REGULAR RHYTHM, +S1, +S2 - GI/Abdominal Exam GI & Abdominal Exam: Soft, Normal Bowel Sounds Additional comments: negative rebound, negative guarding, negative murphys - Extremities Exam Additional comments: negative edema - Neurological Exam Neurological Exam: Alert, Awake Additional comments: patient knows it is but cannot say date, month, year - Skin Skin Exam: Dry, Intact, Normal Color, Warm Assessment and Plan (1) Alcohol abuse Status: Acute (2) Alcohol intoxication Status: Acute (3) Rectal bleeding Status: Acute (4) Prophylactic measure Status: Acute Attending/Attestation - Attestation I have personally seen and examined this patient.: Yes I have fully participated in the care of the patient.: Yes I have reviewed all pertinent clinical information, including history, physical exam and plan: Yes Notes (Text): 1) Possible Delirium tremens Alcohol Abuse Alcohol Withdrawal Assessment/Plan * 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/07/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, patient required Ativan 14mg IV total given tachycardia, restlessness, hallucinations * Discussed with ICU 04/07/18, transferred to the unit for sedation * Patient placed on Precedex and with 1:1 at bedside * being taper * Patient is on Ativan taper * Discussed with psych 04/07/18 who is aware * Patient is on Banana bag * [facility] protocol 2) Alcoholic Hepatitis Transaminitis Assessment/Plan * Patient is heavy alcohol user * Abdominal US ordered * tylenol <10 * alcohol 485 * hepatitis panel: negative * Abdominal US (04/07/18): increased echogenicity of the hepatic parenchymal cortex suggestive for fatty infiltration versus hepatic parenchymal disease. limited visualization of the pancreas. limited visualization of the aorta and IVC * Maddrey's Discriminant Function for Alcoholic Hepatitis: 2.4 good prognosis * Patient is on Precedex drip * Fall precautions * Tremor is significantly less present at bedside; fine tremor less compared to yesterday 3) Rectal Bleeding Assessment/Plan * monitor on telemetry (transferred out from [facility]) * gi consult-->discussed to advance to clear liquids; no plans for procedure * advance to clears * repeat blood work * protonix 40mg IV Q12H * Observed patient's toilet bowl noted blood no clots observed as well as multiple toilet tissues noted for blood streaks on 04/06/18 * Had BM today solid no blood 4) Thrombocytopenia Assessment/Plan * suspect secondary to alcohol effect on bone marrow suppression * Abdominal US (04/07/18): increased echogenicity of the hepatic parenchymal cortex suggestive for fatty infiltration versus hepatic parenchymal disease. limited visualization of the pancreas. 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 * B12: >1000 * Folate: >20.0 * Iron: 126 * TIBC: 344 * iron saturation: 38% * Ferritin: 1116 6) Suicidal attempt Depression Assessment/Plan * management per psych * Lexapro 5mg PO daily * 1:1 ordered 7) Hypokalemia Assessment/Plan * monitor and replete 8) Hypomagnesium Assessment/Plan * monitor and replete 9) Tobacco Abuse Assessment/Plan * Nicoderm patch daily 10) Leukocytosis Assessment/Plan * Normalized * chest xray normal * patient remains afebrile * Blood cultures negative * Urine culture negative 11) Prophylactic measure * Transferred to ICU for suspected DTS given heavy Ativan requirement 04/07/18 need to sedate patient * [facility] protocol * fall precautions * protonix 40mg IV Q12H * Seizure precautions * 1:1 * Gi has advanced to clear liquids 04/09/18 20:29
[2018-04-10] MEDS: Dexmedetomidine Hydrochloride 200 MCG in Sodium Chloride 0.9% 48 ML IV PRN (04:30)
[2018-04-10] MEDS ORDERED: Bisacodyl 5mg EC Tab PO ONE (06:00)
[2018-04-10 06:10] LABS: BASO % 0.3 % (0.0-2.0); EOS # 0.1 K/uL (0.0-0.7); EOS % 1.4 % (0.0-4.0); HEMOGLOBIN 13.6 g/dL (12.0-18.0); LYMPH # 1.1 K/uL (1.0-4.3); LYMPH % 13.2 % (20.0-40.0); MEAN CELL VOLUME 110.6 fL (80.0-94.0); MEAN CORPUSCULAR HEMOGLOBIN 37.4 pg (27.0-31.0); MEAN CORPUSCULAR HGB CONC 33.8 g/dL (33.0-37.0); MEAN PLATELET VOLUME 11.3 fL (7.2-11.7); MONO # 1.4 K/uL (0.0-0.8); MONO % 16.6 % (0.0-10.0); NEUT # 5.6 K/uL (1.8-7.0); NEUT % 68.5 % (50.0-75.0); NRBC % 0.1 % (0.0-2.0); RBC 3.63 Mil/uL (4.40-5.90); RED CELL DISTRIBUTION WIDTH 12.7 % (11.5-14.5); WHITE BLOOD COUNT 8.2 K/uL (4.8-10.8)
[2018-04-10 06:24] LABS: ALB/GLOB RATIO 1.2 (1.0-2.1); ALBUMIN 4.4 g/dL (3.5-5.0); ALT/SGPT 289 U/L (21-72); AST/SGOT 174 U/L (17-59); BLOOD UREA NITROGEN 10 mg/dL (9-20); GFR NON-AFRICAN AMERICAN > 60
--- NOTE | 2018-04-10 07:13 | CP.CCUPN ---
<ElizondoSonyas M - Last Filed: 04/10/18 16:02> CCU Subjective - Physician Review Subjective (Free Text): Critical care progress note for Dr. Mart Patient seen and examined at bedside today. Patient was resting comfortably in bed. Yesterday nursing endorsed patient was tapered off precedex; however, patient was altered and attempting to walk around. Patient was put back on precedex at 0.2. This AM patient has been difficult to arose and would not wake up. 04/10/18 12:56 CCU Objective - Vital Signs / Intake & Output Vital Signs (Last 4 hours): Vital Signs Pulse Resp BP Pulse Ox 04/10/18 07:00 80 22 124/43 L 04/10/18 06:00 82 21 153/40 H 04/10/18 05:00 85 21 120/47 L 98 04/10/18 04:00 85 23 111/65 04/10/18 03:30 82 12 126/83 Intake and Output (Last 8hrs): Intake & Output 04/09/18 04/10/18 04/10/18 22:59 06:59 14:59 Intake Total 539.42 96.2 Output Total 200 400 Balance 339.42 -303.8 Intake: IV 100 50 Intake, IV Amount 169.42 46.2 Left Upper arm 44.42 46.2 Right Hand 125 Oral 270 0 Output: Urine 200 400 Urine, Voided 200 400 Other: # Bowel Movements 1 - Physical Exam Head: Positive for: Atraumatic, Normocephalic Conjunctiva: Positive for: Normal Respiratory/Chest: Positive for: Clear to Auscultation, Good Air Exchange. Negative for: Accessory Muscle Use, Wheezes Cardiovascular: Positive for: Normal S1, S2. Negative for: Murmurs Abdomen: Positive for: Normal Bowel Sounds. Negative for: Tenderness Upper Extremity: Negative for: Cyanosis, Edema Lower Extremity: Positive for: Normal Inspection. Negative for: Edema Neurological: Negative for: GCS=15 Skin: Positive for: Warm, Dry Psychiatric: Positive for: Alert, Other. Negative for: Oriented x 3 - Medications Active Medications: Active Medications Generic Name Dose Route Start Last Admin Trade Name Freq PRN Reason Stop Dose Admin Artificial Tears 0 ml 04/08/18 10:00 04/09/18 17:56 Artificial Tears OU 1 drop BID [facility] Administration Escitalopram Oxalate 5 mg 04/05/18 11:00 04/09/18 09:18 Lexapro PO 5 mg DAILY [facility] Administration Folic Acid 1 mg 04/05/18 10:00 04/06/18 09:49 Folic Acid PO 1 mg DAILY [facility] Administration Gabapentin 100 mg 04/06/18 14:00 04/09/18 17:50 Neurontin PO 100 mg TID [facility] Administration Dexmedetomidine HCl 200 mcg/ 50 mls @ 2.95 mls/hr 04/07/18 08:59 04/10/18 04:30 Sodium Chloride IV 0.3 mcg/kg/hr TITR PRN 4.5 mls/hr Agitation Administration Protocol 0.2 MCG/KG/HR Lorazepam 1 mg 04/07/18 23:00 04/10/18 04:29 Ativan PO 04/12/18 22:59 Not Given Q4 [facility] Taper Multivitamins 1 tab 04/05/18 10:00 04/06/18 09:49 Hexavitamin PO 1 tab DAILY [facility] Administration Nicotine 1 patch 04/07/18 10:00 04/09/18 09:18 Nicoderm Cq TD 1 patch DAILY [facility] Administration Pantoprazole Sodium 40 mg 04/06/18 18:30 04/10/18 07:12 Protonix Inj IVP 40 mg Q12H [facility] Administration Potassium Chloride 40 meq 04/10/18 15:51 K-Dur 20 Meq Er Tab PO 04/10/18 15:52 ONCE ONE Thiamine HCl 100 mg 04/05/18 10:00 04/06/18 09:49 Vitamin B1 Tab PO 100 mg DAILY [facility] Administration Trazodone HCl 100 mg 04/05/18 10:47 Desyrel PO HS PRN Insomnia - Patient Studies Lab Studies: Microbiology Studies 04/08/18 09:31 Urine Culture - Final Urine,Catheterized No Growth (<1,000 CFU/ML) 04/08/18 09:31 Blood Culture - Preliminary Blood NO GROWTH AFTER 24 HOURS 04/08/18 09:31 Blood Culture - Preliminary Blood NO GROWTH AFTER 24 HOURS Lab Studies 04/10/18 04/10/18 04/09/18 Range/Units 05:58 05:58 14:51 WBC 8.2 (4.8-10.8) K/uL RBC 3.63 L (4.40-5.90) Mil/uL Hgb 13.6 (12.0-18.0) g/dL Hct 40.2 (35.0-51.0) % MCV 110.6 H (80.0-94.0) fL MCH 37.4 H (27.0-31.0) pg MCHC 33.8 (33.0-37.0) g/dL RDW 12.7 (11.5-14.5) % Plt Count 134 (130-400) K/uL MPV 11.3 (7.2-11.7) fL Neut % (Auto) 68.5 (50.0-75.0) % Lymph % (Auto) 13.2 L (20.0-40.0) % [place] % (Auto) 16.6 H (0.0-10.0) % Eos % (Auto) 1.4 (0.0-4.0) % Baso % (Auto) 0.3 (0.0-2.0) % Neut # (Auto) 5.6 (1.8-7.0) K/uL Lymph # (Auto) 1.1 (1.0-4.3) K/uL [place] # (Auto) 1.4 H (0.0-0.8) K/uL Eos # (Auto) 0.1 (0.0-0.7) K/uL Baso # (Auto) 0.0 (0.0-0.2) K/uL Sodium 138 (132-148) mmol/L Potassium 3.3 L (3.6-5.2) mmol/L Chloride 105 (98-107) mmol/L Carbon Dioxide 21 L (22-30) mmol/L Anion Gap 15 (10-20) BUN 10 (9-20) mg/dL Creatinine 0.6 L (0.8-1.5) mg/dL Est GFR ( Amer) > 60 Est GFR (Non-Af Amer) > 60 Random Glucose 93 D (75-110) mg/dL Calcium 9.0 (8.6-10.4) mg/dl Phosphorus 3.7 (2.5-4.5) mg/dL Magnesium 1.7 (1.6-2.3) mg/dL Total Bilirubin 1.2 (0.2-1.3) mg/dL AST 174 H (17-59) U/L ALT 289 H (21-72) U/L Alkaline Phosphatase 78 (38-126) U/L Ammonia 24 (9-33) umol/L Total Protein 8.0 (6.3-8.3) g/dL Albumin 4.4 (3.5-5.0) g/dL Globulin 3.6 (2.2-3.9) gm/dL Albumin/Globulin Ratio 1.2 (1.0-2.1) Stool Occult Blood (NEGATIVE) 04/09/18 04/09/18 04/09/18 Range/Units 14:51 14:51 12:13 WBC 10.4 (4.8-10.8) K/uL RBC 3.43 L (4.40-5.90) Mil/uL Hgb 12.8 (12.0-18.0) g/dL Hct 38.1 (35.0-51.0) % MCV 111.2 H (80.0-94.0) fL MCH 37.4 H (27.0-31.0) pg MCHC 33.7 (33.0-37.0) g/dL RDW 13.1 (11.5-14.5) % Plt Count 110 L (130-400) K/uL MPV 11.5 (7.2-11.7) fL Neut % (Auto) 73.1 (50.0-75.0) % Lymph % (Auto) 11.2 L (20.0-40.0) % [place] % (Auto) 14.0 H (0.0-10.0) % Eos % (Auto) 1.4 (0.0-4.0) % Baso % (Auto) 0.3 (0.0-2.0) % Neut # (Auto) 7.6 H (1.8-7.0) K/uL Lymph # (Auto) 1.2 (1.0-4.3) K/uL [place] # (Auto) 1.4 H (0.0-0.8) K/uL Eos # (Auto) 0.1 (0.0-0.7) K/uL Baso # (Auto) 0.0 (0.0-0.2) K/uL Sodium 133 (132-148) mmol/L Potassium 3.6 (3.6-5.2) mmol/L Chloride 103 (98-107) mmol/L Carbon Dioxide 18 L (22-30) mmol/L Anion Gap 16 (10-20) BUN 12 (9-20) mg/dL Creatinine 0.6 L (0.8-1.5) mg/dL Est GFR ( Amer) > 60 Est GFR (Non-Af Amer) > 60 Random Glucose 125 H D (75-110) mg/dL Calcium 8.9 (8.6-10.4) mg/dl Phosphorus (2.5-4.5) mg/dL Magnesium (1.6-2.3) mg/dL Total Bilirubin 1.0 (0.2-1.3) mg/dL AST 151 H D (17-59) U/L ALT 288 H (21-72) U/L Alkaline Phosphatase 72 (38-126) U/L Ammonia (9-33) umol/L Total Protein 7.7 (6.3-8.3) g/dL Albumin 4.3 (3.5-5.0) g/dL Globulin 3.4 (2.2-3.9) gm/dL Albumin/Globulin Ratio 1.2 (1.0-2.1) Stool Occult Blood Negative (NEGATIVE) Laboratory Results - last 24 hr 04/09/18 04/09/18 04/09/18 12:13 14:51 14:51 WBC 10.4 RBC 3.43 L Hgb 12.8 Hct 38.1 MCV 111.2 H MCH 37.4 H MCHC 33.7 RDW 13.1 Plt Count 110 L MPV 11.5 Neut % (Auto) 73.1 Lymph % (Auto) 11.2 L [place] % (Auto) 14.0 H Eos % (Auto) 1.4 Baso % (Auto) 0.3 Neut # (Auto) 7.6 H Lymph # (Auto) 1.2 [place] # (Auto) 1.4 H Eos # (Auto) 0.1 Baso # (Auto) 0.0 Sodium 133 Potassium 3.6 Chloride 103 Carbon Dioxide 18 L Anion Gap 16 BUN 12 Creatinine 0.6 L Est GFR ( Amer) > 60 Est GFR (Non-Af Amer) > 60 Random Glucose 125 H D Calcium 8.9 Phosphorus Magnesium Total Bilirubin 1.0 AST 151 H D ALT 288 H Alkaline Phosphatase 72 Ammonia Total Protein 7.7 Albumin 4.3 Globulin 3.4 Albumin/Globulin Ratio 1.2 Stool Occult Blood Negative 04/09/18 04/10/18 04/10/18 14:51 05:58 05:58 WBC 8.2 RBC 3.63 L Hgb 13.6 Hct 40.2 MCV 110.6 H MCH 37.4 H MCHC 33.8 RDW 12.7 Plt Count 134 MPV 11.3 Neut % (Auto) 68.5 Lymph % (Auto) 13.2 L [place] % (Auto) 16.6 H Eos % (Auto) 1.4 Baso % (Auto) 0.3 Neut # (Auto) 5.6 Lymph # (Auto) 1.1 [place] # (Auto) 1.4 H Eos # (Auto) 0.1 Baso # (Auto) 0.0 Sodium 138 Potassium 3.3 L Chloride 105 Carbon Dioxide 21 L Anion Gap 15 BUN 10 Creatinine 0.6 L Est GFR ( Amer) > 60 Est GFR (Non-Af Amer) > 60 Random Glucose 93 D Calcium 9.0 Phosphorus 3.7 Magnesium 1.7 Total Bilirubin 1.2 AST 174 H ALT 289 H Alkaline Phosphatase 78 Ammonia 24 Total Protein 8.0 Albumin 4.4 Globulin 3.6 Albumin/Globulin Ratio 1.2 Stool Occult Blood Fingerstick Blood Sugar Results: 77 Review of Systems - Review of Systems Systems not reviewed;Unavailable: Altered Mental Status Critical Care Progress Note - Ventilator Checklist PUD Prophalyxis: Yes DVT Prophylaxis: Yes - Extremities/Vascular Does the Patient have a Central Venous Catheter?: No Does the Patient need a Central Venous Catheter?: No Does the Patient have a Quijano Catheter?: No Does the Patient need a Quijano Catheter?: No - Prophylaxis GI Prophylaxis GI: Pepsid - Prophylaxis DVT Prophylaxis DVT: Heparin SQ - Nutrition Nutrition: Nutrition Category Date Time Status Liquid Diet [DIET] Diets 04/09/18 Breakfast Active Assessment/Plan - Assessment and Plan (Free Text) Assessment: Patient is a 52 year old male with PMHx of Depression and Alcohol Use Disorder, who was transferred to the ICU for severe agitation secondary to delrium tremens. Patient was started on precedex drip 04/07. Attempted precedex taper 04/09 however patient began to hallucinate. PRecedex drip started, currently at 0.2 mcg/kg/ ml. Plan: Neuro - unarousable this AM - precedex started back, continue to taper, currently at 0.2mcg/kg/ml - seizure precautions - Aspiration precautions - Cardiac - Regular rate today - Continue to monitor vitals Pulm - 97% on NC 2L - no current issues Renal - Potassium 3.3 today - Replete Potassium - Magnesium 1.7 - Replete magnesium - continue multivitamins - continue Folic Acid - monitor CMP GI - Transaminitis, downtrending; AST/ALT 100s/200s - T.[place] 1.0 today - Hepatitis panel negative - Ammonia (04/08) 23 - Protonix Q12 for GI ppx 03/28 GI bleed - abdominal u/s 04/07: fatty infiltration vs parencymal disease - Dulcolax x2 for constipation, per GI - Clear liquid diet - condom cath Heme - H/H 13.6/40.2 - Platelet count 134 ID - Afebrile - WBC 8.2 today Psych - Ativan Taper - avoid librium due to transaminitis - per psych: - Nicoderm patch for Nicotine use disorder - Trazodone 100mg PO PRN - Lexapro 5mg - Gabapentin 100mg TID - f/u Psych recs PPx - SCDs for DVT ppx; heparin contraindicated due to GI bleed - Protonix for GI ppx <Silvestre Mart S - Last Filed: 04/10/18 18:25> CCU Subjective - Physician Review Critical Care Time Spent (in minutes): 40 CCU Objective - Vital Signs / Intake & Output Vital Signs (Last 4 hours): Vital Signs Pulse Resp BP Pulse Ox 04/10/18 18:00 93 H 23 125/78 94 L 04/10/18 17:00 95 H 20 113/81 93 L 04/10/18 16:00 83 23 114/75 85 L 04/10/18 15:01 69 18 137/73 97 04/10/18 15:00 71 21 95 Intake and Output (Last 8hrs): Intake & Output 04/10/18 04/10/18 04/10/18 06:59 14:59 22:59 Intake Total 96.2 813.5 658 Output Total 400 400 300 Balance -303.8 413.5 358 Intake: IV 50 35 5 Intake, IV Amount 46.2 228.5 403 Left Upper arm 46.2 16.5 Right Hand 12 3 Right Proximal Port Hand 200 400 Oral 0 550 250 Output: Urine 400 400 300 Urine, Voided 400 400 300 - Medications Active Medications: Active Medications Generic Name Dose Route Start Last Admin Trade Name Freq PRN Reason Stop Dose Admin Artificial Tears 0 ml 04/08/18 10:00 04/10/18 17:47 Artificial Tears OU 1 drop BID [facility] Administration Escitalopram Oxalate 5 mg 04/05/18 11:00 04/10/18 10:52 Lexapro PO 5 mg DAILY [facility] Administration Famotidine 20 mg 04/11/18 10:00 Pepcid PO DAILY [facility] Folic Acid 1 mg 04/05/18 10:00 04/10/18 10:52 Folic Acid PO 1 mg DAILY [facility] Administration Gabapentin 100 mg 04/06/18 14:00 04/10/18 17:47 Neurontin PO 100 mg TID [facility] Administration Heparin Sodium (Porcine) 5,000 units 04/10/18 22:00 Heparin SC Q8 [facility] Dexmedetomidine HCl 200 mcg/ 50 mls @ 2.95 mls/hr 04/07/18 08:59 04/10/18 16:00 Sodium Chloride IV 0 mcg/kg/hr TITR PRN 0 mls/hr Agitation Titration Protocol 0.2 MCG/KG/HR Dextrose/Sodium Chloride 1,000 mls @ 100 mls/hr 04/10/18 12:00 04/10/18 12:16 Dextrose 5%/0.45% Ns 1000 Ml IV 100 mls/hr .Q10H [facility] Administration Lorazepam 1 mg 04/07/18 23:00 04/10/18 16:22 Ativan PO 04/12/18 22:59 1 mg Q4 [facility] Administration Taper Multivitamins 1 tab 04/05/18 10:00 04/10/18 10:52 Hexavitamin PO 1 tab DAILY [facility] Administration Nicotine 1 patch 04/07/18 10:00 04/10/18 10:07 Nicoderm Cq TD 1 patch DAILY [facility] Administration Thiamine HCl 100 mg 04/05/18 10:00 04/10/18 10:52 Vitamin B1 Tab PO 100 mg DAILY [facility] Administration Trazodone HCl 100 mg 04/05/18 10:47 Desyrel PO HS PRN Insomnia - Patient Studies Lab Studies: Microbiology Studies 04/08/18 09:31 Blood Culture - Preliminary Blood NO GROWTH AFTER 48 HOURS 04/08/18 09:31 Blood Culture - Preliminary Blood NO GROWTH AFTER 48 HOURS Lab Studies 04/10/18 04/10/18 04/10/18 Range/Units 15:37 05:58 05:58 WBC 8.2 (4.8-10.8) K/uL RBC 3.63 L (4.40-5.90) Mil/uL Hgb 13.6 (12.0-18.0) g/dL Hct 40.2 (35.0-51.0) % MCV 110.6 H (80.0-94.0) fL MCH 37.4 H (27.0-31.0) pg MCHC 33.8 (33.0-37.0) g/dL RDW 12.7 (11.5-14.5) % Plt Count 134 (130-400) K/uL MPV 11.3 (7.2-11.7) fL Neut % (Auto) 68.5 (50.0-75.0) % Lymph % (Auto) 13.2 L (20.0-40.0) % [place] % (Auto) 16.6 H (0.0-10.0) % Eos % (Auto) 1.4 (0.0-4.0) % Baso % (Auto) 0.3 (0.0-2.0) % Neut # (Auto) 5.6 (1.8-7.0) K/uL Lymph # (Auto) 1.1 (1.0-4.3) K/uL [place] # (Auto) 1.4 H (0.0-0.8) K/uL Eos # (Auto) 0.1 (0.0-0.7) K/uL Baso # (Auto) 0.0 (0.0-0.2) K/uL Differential Comment Sodium 138 (132-148) mmol/L Potassium 3.3 L (3.6-5.2) mmol/L Chloride 105 (98-107) mmol/L Carbon Dioxide 21 L (22-30) mmol/L Anion Gap 15 (10-20) BUN 10 (9-20) mg/dL Creatinine 0.6 L (0.8-1.5) mg/dL Est GFR ( Amer) > 60 Est GFR (Non-Af Amer) > 60 Random Glucose 93 D (75-110) mg/dL Calcium 9.0 (8.6-10.4) mg/dl Phosphorus 3.7 (2.5-4.5) mg/dL Magnesium 1.7 (1.6-2.3) mg/dL Total Bilirubin 1.2 (0.2-1.3) mg/dL AST 174 H (17-59) U/L ALT 289 H (21-72) U/L Alkaline Phosphatase 78 (38-126) U/L Ammonia 27 (9-33) umol/L Total Protein 8.0 (6.3-8.3) g/dL Albumin 4.4 (3.5-5.0) g/dL Globulin 3.6 (2.2-3.9) gm/dL Albumin/Globulin Ratio 1.2 (1.0-2.1) Laboratory Results - last 24 hr 04/10/18 04/10/18 04/10/18 05:58 05:58 15:37 WBC 8.2 RBC 3.63 L Hgb 13.6 Hct 40.2 MCV 110.6 H MCH 37.4 H MCHC 33.8 RDW 12.7 Plt Count 134 MPV 11.3 Neut % (Auto) 68.5 Lymph % (Auto) 13.2 L [place] % (Auto) 16.6 H Eos % (Auto) 1.4 Baso % (Auto) 0.3 Neut # (Auto) 5.6 Lymph # (Auto) 1.1 [place] # (Auto) 1.4 H Eos # (Auto) 0.1 Baso # (Auto) 0.0 Differential Comment Sodium 138 Potassium 3.3 L Chloride 105 Carbon Dioxide 21 L Anion Gap 15 BUN 10 Creatinine 0.6 L Est GFR ( Amer) > 60 Est GFR (Non-Af Amer) > 60 Random Glucose 93 D Calcium 9.0 Phosphorus 3.7 Magnesium 1.7 Total Bilirubin 1.2 AST 174 H ALT 289 H Alkaline Phosphatase 78 Ammonia 27 Total Protein 8.0 Albumin 4.4 Globulin 3.6 Albumin/Globulin Ratio 1.2 Critical Care Progress Note - Nutrition Nutrition: Nutrition Category Date Time Status Liquid Diet [DIET] Diets 04/09/18 Breakfast Active Attending/Attestation - Attestation I have personally seen and examined this patient.: Yes I have fully participated in the care of the patient.: Yes I have reviewed all pertinent clinical information: Yes Notes (Text): 04/10/18 18:24 Patient seen and examined in the intensive care unit. Taper off sedation as tolerated Continue IV fluids Continue to follow CIWA protocol
[2018-04-10] MEDS ORDERED: Potassium Chloride 20 mEq ER Tab PO ONE ×2 (08:00→15:51)
[2018-04-10] MEDS: Aritificial Tears (15ml) OU SCH ×2 (10:52→17:47)
[2018-04-10] MEDS: Multiple Vitamins Tab PO SCH (10:52)
[2018-04-10] MEDS: Dextrose 5%/0.45% NS 1,000 ML IV SCH ×2 (12:16→22:26)
--- NOTE | 2018-04-10 15:21 | CP.PCM.PN ---
Subjective - Date & Time of Evaluation Date of Evaluation: 04/10/18 Time of Evaluation: 13:00 - Subjective Subjective: Medical attending note Patient seen, examined, case discussed with medical office assistant. Patient recognizes me from yesterday. Patient does not know the correct date. Patient denies chest pain, shortness of breath, abdominal pain, denies constipation,, denies nausea or vomiting. Discussed with nursing staff patient was agitated overnight requiring Precedex after it was initially discontinued around 7 PM. Patient is on low-dose Precedex at this time. I have explained to the patient that he needs to strongly encourage himself to be off the alcohol. Objective - Vital Signs/Intake and Output Vital Signs (last 24 hours): Temp Pulse Resp BP Pulse Ox 98 F 78 24 105/66 91 L 04/10/18 12:00 04/10/18 14:00 04/10/18 14:00 04/10/18 14:00 04/10/18 14:00 Intake and Output: 04/10/18 04/10/18 06:59 18:59 Intake Total 321.3 813.5 Output Total 400 400 Balance -78.7 413.5 - Medications Medications: Current Medications Artificial Tears (Artificial Tears) 0 ml OU BID [facility] Last Admin: 04/10/18 10:52 Dose: 1 drop Escitalopram Oxalate (Lexapro) 5 mg PO DAILY [facility] Last Admin: 04/10/18 10:52 Dose: 5 mg Folic Acid (Folic Acid) 1 mg PO DAILY [facility] Last Admin: 04/10/18 10:52 Dose: 1 mg Gabapentin (Neurontin) 100 mg PO TID [facility] Last Admin: 04/10/18 14:01 Dose: 100 mg Dexmedetomidine HCl 200 mcg/ (Sodium Chloride) 50 mls @ 2.95 mls/hr IV TITR PRN; Protocol PRN Reason: Agitation Last Titration: 04/10/18 09:30 Dose: 0.2 mcg/kg/hr, 2.95 mls/hr Dextrose/Sodium Chloride (Dextrose 5%/0.45% Ns 1000 Ml) 1,000 mls @ 100 mls/hr IV .Q10H [facility] Last Admin: 04/10/18 12:16 Dose: 100 mls/hr Lorazepam (Ativan) 1 mg PO Q4 [facility]; Taper Stop: 04/12/18 22:59 Last Admin: 04/10/18 12:04 Dose: 1 mg Multivitamins (Hexavitamin) 1 tab PO DAILY [facility] Last Admin: 04/10/18 10:52 Dose: 1 tab Nicotine (Nicoderm Cq) 1 patch TD DAILY [facility] Last Admin: 04/10/18 10:07 Dose: 1 patch Pantoprazole Sodium (Protonix Inj) 40 mg IVP Q12H [facility] Last Admin: 04/10/18 07:12 Dose: 40 mg Potassium Chloride (K-Dur 20 Meq Er Tab) 40 meq PO ONCE ONE Stop: 04/10/18 15:52 Thiamine HCl (Vitamin B1 Tab) 100 mg PO DAILY [facility] Last Admin: 04/10/18 10:52 Dose: 100 mg Trazodone HCl (Desyrel) 100 mg PO HS PRN PRN Reason: Insomnia - Labs Labs: 04/10/18 05:58 04/10/18 05:58 PT 12.3 SECONDS (9.7-12.2) H 04/07/18 06:24 INR 1.1 04/07/18 06:24 - Constitutional Appears: Non-toxic, No Acute Distress - Head Exam Head Exam: NORMAL INSPECTION - Eye Exam Eye Exam: EOMI - ENT Exam ENT Exam: Mucous Membranes Moist - Respiratory Exam Respiratory Exam: Clear to Ausculation Bilateral, NORMAL BREATHING PATTERN. absent: Rales, Rhonchi, Wheezes - Cardiovascular Exam Cardiovascular Exam: REGULAR RHYTHM, +S1, +S2 - GI/Abdominal Exam GI & Abdominal Exam: Soft, Normal Bowel Sounds. absent: Distended, Firm, Guarding, Rigid, Tenderness, Rebound - Extremities Exam Extremities Exam: absent: Pedal Edema, Tenderness - Neurological Exam Neurological Exam: Alert, Awake - Psychiatric Exam Psychiatric exam: Normal Affect, Normal Mood - Skin Skin Exam: Dry, Intact, Normal Color, Warm Assessment and Plan (1) Alcohol abuse Status: Acute (2) Alcohol intoxication Status: Acute (3) Rectal bleeding Status: Acute (4) Tobacco abuse Status: Acute (5) Prophylactic measure Status: Acute Attending/Attestation - Attestation I have personally seen and examined this patient.: Yes I have fully participated in the care of the patient.: Yes I have reviewed all pertinent clinical information, including history, physical exam and plan: Yes Notes (Text): 1) Possible Delirium tremens Alcohol Abuse Alcohol Withdrawal Assessment/Plan * From 04/07/18 early interventionist, patient required Ativan 14mg IV total given tachycardia, restlessness, hallucinations * Discussed with ICU 04/07/18, transferred to the unit for sedation * Patient placed on Precedex and with 1:1 at bedside * being taper * Patient is on Ativan taper * Discussed with psych 04/07/18 * [facility] protocol * Folic acid 1 mg Po daily * Thiamine 100mg Po daily * MVI 1 tab PO daily 2) Alcoholic Hepatitis Transaminitis Assessment/Plan * Patient is heavy alcohol user * tylenol <10 * alcohol 485 * hepatitis panel: negative * Abdominal US (04/07/18): increased echogenicity of the hepatic parenchymal cortex suggestive for fatty infiltration versus hepatic parenchymal disease. limited visualization of the pancreas. limited visualization of the aorta and IVC * Maddrey's Discriminant Function for Alcoholic Hepatitis: 2.4 good prognosis * Patient is on Precedex drip * Fall precautions * Tremor is significantly less present at bedside; fine tremor improving; but was agitated over night 3) Rectal Bleeding (not current) Assessment/Plan * monitor on telemetry (transferred out from [facility]) * gi consult-->discussed to advance to clear liquids; no plans for procedure 04/09/18 * advance to clears * protonix 40mg IV Q12H * Observed patient's toilet bowl noted blood no clots observed as well as multiple toilet tissues noted for blood streaks on 04/06/18 4) Thrombocytopenia (normalized) Assessment/Plan * suspect secondary to alcohol effect on bone marrow suppression * Abdominal US (04/07/18): increased echogenicity of the hepatic parenchymal cortex suggestive for fatty infiltration versus hepatic parenchymal disease. limited visualization of the pancreas. 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 * B12: >1000 * Folate: >20.0 * Iron: 126 * TIBC: 344 * iron saturation: 38% * Ferritin: 1116 6) Suicidal attempt Depression Assessment/Plan * management per psych * Lexapro 5mg PO daily * 1:1 ordered 7) Hypokalemia Assessment/Plan * monitor and replete 8) Hypomagnesium Assessment/Plan * monitor and replete 9) Tobacco Abuse Assessment/Plan * Nicoderm patch daily 10) Leukocytosis (nromalized) Assessment/Plan * Normalized * chest xray normal * patient remains afebrile * Blood cultures negative * Urine culture negative 11) Prophylactic measure * Transferred to ICU for suspected DTS given heavy Ativan requirement 04/07/18 need to sedate patient * [facility] protocol * fall precautions * protonix 40mg IV Q12H * Seizure precautions * 1:1 * Gi has advanced to clear liquids * PT/OT eval
[2018-04-11 05:54] LABS: BASO # 0.1 K/uL (0.0-0.2); BASO % 0.9 % (0.0-2.0); EOS # 0.1 K/uL (0.0-0.7); EOS % 1.6 % (0.0-4.0); HEMOGLOBIN 12.6 g/dL (12.0-18.0); LYMPH % 24.9 % (20.0-40.0); MEAN CELL VOLUME 110.9 fL (80.0-94.0); MEAN CORPUSCULAR HEMOGLOBIN 37.3 pg (27.0-31.0); MEAN CORPUSCULAR HGB CONC 33.7 g/dL (33.0-37.0); MEAN PLATELET VOLUME 10.9 fL (7.2-11.7); MONO # 1.6 K/uL (0.0-0.8); NEUT # 4.3 K/uL (1.8-7.0); NEUT % 52.6 % (50.0-75.0); RBC 3.38 Mil/uL (4.40-5.90); RED CELL DISTRIBUTION WIDTH 12.7 % (11.5-14.5); WHITE BLOOD COUNT 8.2 K/uL (4.8-10.8)
[2018-04-11 06:24] LABS: ALB/GLOB RATIO 1.1 (1.0-2.1); ALBUMIN 4.1 g/dL (3.5-5.0); ALT/SGPT 259 U/L (21-72); AST/SGOT 179 U/L (17-59); BLOOD UREA NITROGEN 10 mg/dL (9-20); CALCIUM 9.3 mg/dl (8.6-10.4); GFR NON-AFRICAN AMERICAN > 60
[2018-04-11] MEDS: Dextrose 5%/0.45% NS 1,000 ML IV SCH ×2 (08:14→08:20)
[2018-04-11] MEDS ORDERED: Potassium Chloride 20 mEq ER Tab PO ONE ×2 (08:40→09:45)
--- NOTE | 2018-04-11 08:44 | CP.PCM.PN ---
Subjective - Date & Time of Evaluation Date of Evaluation: 04/11/18 Time of Evaluation: 08:40 - Subjective Subjective: Medical Attending Note: Patient seen and examined. Patient recognizes me at bedside. He reports he is feeling better. Patient does not have tremors. He is sitting upright in chair. Please. Patient denies acute complaints. Objective - Vital Signs/Intake and Output Vital Signs (last 24 hours): Temp Pulse Resp BP Pulse Ox 98 F 115 H 20 105/73 94 L 04/10/18 12:00 04/11/18 08:01 04/11/18 08:01 04/11/18 08:01 04/11/18 03:00 Intake and Output: 04/11/18 04/11/18 06:59 18:59 Intake Total 1420 200 Output Total 1120 Balance 300 200 - Medications Medications: Current Medications Artificial Tears (Artificial Tears) 0 ml OU BID [facility] Last Admin: 04/10/18 17:47 Dose: 1 drop Escitalopram Oxalate (Lexapro) 5 mg PO DAILY [facility] Last Admin: 04/10/18 10:52 Dose: 5 mg Famotidine (Pepcid) 20 mg PO DAILY [facility] Folic Acid (Folic Acid) 1 mg PO DAILY [facility] Last Admin: 04/10/18 10:52 Dose: 1 mg Gabapentin (Neurontin) 100 mg PO TID [facility] Last Admin: 04/10/18 17:47 Dose: 100 mg Heparin Sodium (Porcine) (Heparin) 5,000 units SC Q8 [facility] Last Admin: 04/11/18 05:26 Dose: 5,000 units Dexmedetomidine HCl 200 mcg/ (Sodium Chloride) 50 mls @ 2.95 mls/hr IV TITR PRN; Protocol PRN Reason: Agitation Last Titration: 04/10/18 16:00 Dose: 0 mcg/kg/hr, 0 mls/hr Dextrose/Sodium Chloride (Dextrose 5%/0.45% Ns 1000 Ml) 1,000 mls @ 100 mls/hr IV .Q10H [facility] Last Admin: 04/11/18 08:20 Dose: 100 mls/hr Magnesium Sulfate/Dextrose (Magnesium Sulfate 1 Gm/100 Ml D5w) 1 gm in 100 mls @ 300 mls/hr IVPB Q30M [facility] Stop: 04/11/18 09:34 Lorazepam (Ativan) 1 mg PO Q8 [facility]; Taper Stop: 04/12/18 22:59 Last Admin: 04/10/18 21:37 Dose: 1 mg Multivitamins (Hexavitamin) 1 tab PO DAILY [facility] Last Admin: 04/10/18 10:52 Dose: 1 tab Nicotine (Nicoderm Cq) 1 patch TD DAILY [facility] Last Admin: 04/10/18 10:07 Dose: 1 patch Potassium Chloride (K-Dur 20 Meq Er Tab) 20 meq PO ONCE ONE Stop: 04/11/18 08:41 Thiamine HCl (Vitamin B1 Tab) 100 mg PO DAILY [facility] Last Admin: 04/10/18 10:52 Dose: 100 mg Trazodone HCl (Desyrel) 100 mg PO HS PRN PRN Reason: Insomnia Last Admin: 04/11/18 00:56 Dose: 100 mg - Labs Labs: 04/11/18 05:47 04/11/18 05:47 PT 12.3 SECONDS (9.7-12.2) H 04/07/18 06:24 INR 1.1 04/07/18 06:24 - Constitutional Appears: Non-toxic, No Acute Distress - Head Exam Head Exam: NORMAL INSPECTION - Eye Exam Eye Exam: EOMI - ENT Exam ENT Exam: Mucous Membranes Moist - Respiratory Exam Respiratory Exam: Clear to Ausculation Bilateral. absent: Rales, Rhonchi, Wheezes, NORMAL BREATHING PATTERN - Cardiovascular Exam Cardiovascular Exam: REGULAR RHYTHM, +S1, +S2 - GI/Abdominal Exam GI & Abdominal Exam: Soft, Normal Bowel Sounds. absent: Distended, Firm, Guarding, Rigid, Tenderness, Hypoactive Bowel Sounds, Rebound - Extremities Exam Extremities Exam: absent: Pedal Edema, Tenderness - Neurological Exam Neurological Exam: Alert, Awake, Oriented x3 - Psychiatric Exam Psychiatric exam: Normal Affect, Normal Mood - Skin Skin Exam: Dry, Intact, Normal Color, Warm Assessment and Plan (1) Alcohol abuse Status: Acute (2) Alcohol intoxication Status: Acute (3) Rectal bleeding Status: Acute (4) Prophylactic measure Status: Acute (5) Tobacco abuse Status: Acute Attending/Attestation - Attestation I have personally seen and examined this patient.: Yes I have fully participated in the care of the patient.: Yes I have reviewed all pertinent clinical information, including history, physical exam and plan: Yes Notes (Text): 1) Delirium tremens Alcohol Abuse Alcohol Withdrawal Assessment/Plan * From 04/07/18 early childhood coordinator, patient required Ativan 14mg IV total given tachycardia, restlessness, hallucinations * Discussed with ICU 04/07/18, transferred to the unit for sedation * Patient placed on Precedex and with 1:1 at bedside; off precedex since 4PM yesterday * Patient is on Ativan taper; tonight * Discussed with psych 04/07/18 * [facility] protocol * Folic acid 1 mg Po daily * Thiamine 100mg Po daily * MVI 1 tab PO daily 2) Alcoholic Hepatitis Transaminitis Assessment/Plan * Patient is heavy alcohol user * tylenol <10 * alcohol 485 * hepatitis panel: negative * Abdominal US (04/07/18): increased echogenicity of the hepatic parenchymal cortex suggestive for fatty infiltration versus hepatic parenchymal disease. limited visualization of the pancreas. limited visualization of the aorta and IVC * Maddrey's Discriminant Function for Alcoholic Hepatitis: 2.4 good prognosis * Fall precautions * tremors have resolved 3) Rectal Bleeding (not current) Assessment/Plan * monitor on telemetry (transferred out from [facility]) * gi consult-->discussed to advance to clear liquids; no plans for procedure 04/09/18 * advance to regular diet * protonix 40mg IV Q12H * Observed patient's toilet bowl noted blood no clots observed as well as multiple toilet tissues noted for blood streaks on 04/06/18 4) Thrombocytopenia (normalized) Assessment/Plan * suspect secondary to alcohol effect on bone marrow suppression * Abdominal US (04/07/18): increased echogenicity of the hepatic parenchymal cortex suggestive for fatty infiltration versus hepatic parenchymal disease. limited visualization of the pancreas. 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 * B12: >1000 * Folate: >20.0 * Iron: 126 * TIBC: 344 * iron saturation: 38% * Ferritin: 1116 6) Suicidal attempt Depression Assessment/Plan * management per psych * Lexapro 5mg PO daily * 1:1 ordered 7) Hypokalemia Assessment/Plan * monitor and replete 8) Hypomagnesium Assessment/Plan * monitor and replete 9) Tobacco Abuse Assessment/Plan * Nicoderm patch daily 10) Leukocytosis (nromalized) Assessment/Plan * Normalized * chest xray normal * patient remains afebrile * Blood cultures negative * Urine culture negative 11) Prophylactic measure * Transferred to ICU for suspected DTS given heavy Ativan requirement 04/07/18 need to sedate patient * [facility] protocol * fall precautions * protonix 40mg IV Q12H * Seizure precautions * 1:1 * PT/OT eval
[2018-04-11] MEDS: Magnesium Sulfate 1 gm in D5W 1 GM/100 ML BAG IVPB SCH ×2 (09:50→10:51)
[2018-04-11] MEDS: Multiple Vitamins Tab PO SCH (09:53)
[2018-04-11] MEDS: Aritificial Tears (15ml) OU SCH ×2 (10:50→17:58)
[2018-04-11] MEDS: Potassium Chloride 20 mEq ER Tab PO SCH ×2 (10:55→17:58)
--- NOTE | 2018-04-11 14:11 | CP.PCM.PN ---
Subjective - Date & Time of Evaluation Date of Evaluation: 04/11/18 Time of Evaluation: 14:08 - Subjective Subjective: Patient seen and examined at [facility]. Patient sleeping comfortably. not on precedex, tolerated breakfast Objective - Vital Signs/Intake and Output Vital Signs (last 24 hours): Temp Pulse Resp BP Pulse Ox 98.5 F 81 18 132/80 95 04/11/18 12:00 04/11/18 13:00 04/11/18 13:00 04/11/18 10:54 04/11/18 12:00 Intake and Output: 04/11/18 04/11/18 06:59 18:59 Intake Total 1420 980 Output Total 1120 900 Balance 300 80 - Medications Medications: Current Medications Artificial Tears (Artificial Tears) 0 ml OU BID [facility] Last Admin: 04/11/18 10:50 Dose: 2 drop Escitalopram Oxalate (Lexapro) 5 mg PO DAILY [facility] Last Admin: 04/11/18 09:53 Dose: 5 mg Famotidine (Pepcid) 20 mg PO DAILY [facility] Last Admin: 04/11/18 09:53 Dose: 20 mg Folic Acid (Folic Acid) 1 mg PO DAILY [facility] Last Admin: 04/11/18 09:53 Dose: 1 mg Gabapentin (Neurontin) 100 mg PO TID [facility] Last Admin: 04/11/18 14:04 Dose: 100 mg Heparin Sodium (Porcine) (Heparin) 5,000 units SC Q8 [facility] Last Admin: 04/11/18 14:05 Dose: 5,000 units Dextrose/Sodium Chloride (Dextrose 5%/0.45% Ns 1000 Ml) 1,000 mls @ 100 mls/hr IV .Q10H [facility] Last Admin: 04/11/18 08:20 Dose: 100 mls/hr Lorazepam (Ativan) 1 mg PO Q8 [facility]; Taper Stop: 04/12/18 22:59 Last Admin: 04/11/18 14:00 Dose: Not Given Multivitamins (Hexavitamin) 1 tab PO DAILY [facility] Last Admin: 04/11/18 09:53 Dose: 1 tab Nicotine (Nicoderm Cq) 1 patch TD DAILY [facility] Last Admin: 04/11/18 09:50 Dose: 1 patch Potassium Chloride (K-Dur 20 Meq Er Tab) 40 meq PO Q6H [facility] Stop: 04/12/18 05:01 Last Admin: 04/11/18 10:55 Dose: 40 meq Thiamine HCl (Vitamin B1 Tab) 100 mg PO DAILY [facility] Last Admin: 04/11/18 09:53 Dose: 100 mg Trazodone HCl (Desyrel) 100 mg PO HS PRN PRN Reason: Insomnia Last Admin: 04/11/18 00:56 Dose: 100 mg - Labs Labs: 04/11/18 05:47 04/11/18 05:47 PT 12.3 SECONDS (9.7-12.2) H 04/07/18 06:24 INR 1.1 04/07/18 06:24 - Constitutional Appears: Well, Non-toxic - Head Exam Head Exam: ATRAUMATIC, NORMAL INSPECTION - Eye Exam Eye Exam: EOMI, Normal appearance Pupil Exam: NORMAL ACCOMODATION - Neck Exam Neck Exam: Full ROM - Respiratory Exam Respiratory Exam: Clear to Ausculation Bilateral, NORMAL BREATHING PATTERN - Cardiovascular Exam Cardiovascular Exam: REGULAR RHYTHM, +S1, +S2 - GI/Abdominal Exam GI & Abdominal Exam: Soft, Normal Bowel Sounds. absent: Rigid, Tenderness, Hernia, Mass - Extremities Exam Extremities Exam: Normal Capillary Refill, Normal Inspection - Neurological Exam Neurological Exam: Alert, Awake, CN II-XII Intact, Normal Gait, Oriented x3 - Skin Skin Exam: Normal Color Assessment and Plan - Assessment and Plan (Free Text) Assessment: DTs: resolved off precedex, -continue all other home medications -check and replace electrolytes -continue dvt/pud ppx
[2018-04-11 17:01] VITALS: BP 117/77; O2SAT 96
--- NOTE | 2018-04-11 17:26 | CP.PCM.DIS ---
Provider - Provider Date of Admission: 04/04/18 22:37 Attending physician: Kiya Ho DO Consults: 04/06/18 16:30 Hospitalist Consult Routine Comment: Consulting Provider: Kiya Ho V Consulting Physician: Kiya Ho V Reason for Consult: Bleeding with bowel movement 04/06/18 18:16 Gastroenterology Consult Routine Comment: Consulting Provider: Cally Florez Consulting Physician: Cally Florez Reason for Consult: gi bleed 04/06/18 19:12 Psychiatry Consult Routine Comment: Consulting Provider: Karla Wyman Consulting Physician: Karla Wyman Reason for Consult: etoh abuse 04/07/18 06:59 Critical Care Consult Routine Comment: Consulting Provider: Silvestre Mart Consulting Physician: Silvestre Mart Reason for Consult: eval for DTs 04/07/18 17:19 Case Management Referral Routine Comment: Physician Instructions: Reason For Exam: Reason for Referral: Discharge Planning Time Spent in preparation of Discharge (in minutes): 31 Diagnosis - Discharge Diagnosis (1) Alcohol abuse Status: Chronic Comment: Patient has completed Ativan taper. Patient is medically stable. Patient has no tremors. Case discussed with psychiatry stable from the standpoint for discharge. Patient recommended strongly to follow-up with Alcoholics Anonymous and see if needed. Patient is a mechanical to stop alcohol given the unnecessary side effects. Patient recommended in addition to alcohol cessation AA as well as multivitamin thiamine and folic acid. I spoke with patient's family member as well to reinforce stated directions. (2) Alcohol intoxication Status: Resolved (3) Rectal bleeding Status: Resolved Comment: Patient hemoglobin stable. Discussed with GI during the course of hospitalization. No need for inpatient procedure. Patient recommends trying to seek outpatient GI referral for screening colonoscopy given the age of 52. Patient strongly advised to stop alcohol given unnecessary risk factors including but not limited to GI bleeding thinning of the blood etc. etc. (4) Tobacco abuse Status: Chronic Comment: Patient strongly counseled against smoking including but not limited to premature aging, , lung cancer. Patient during course of hospitalization required nicotine patch. (5) Hypokalemia Status: Resolved Comment: During course of hospitalization was monitored and repleted as necessary. Hospital Course - Lab Results Lab Results: Micro Results 04/08/18 09:31 Blood Blood Culture - Preliminary NO GROWTH AFTER 3 DAYS 04/08/18 09:31 Blood Blood Culture - Preliminary NO GROWTH AFTER 3 DAYS 04/08/18 09:31 Urine,Catheterized Urine Culture - Final No Growth (<1,000 CFU/ML) 04/07/18 11:56 Nose MRSA Culture (Admit) - Final MRSA NOT DETECTED Most Recent Lab Values WBC 8.2 K/uL (4.8-10.8) 04/11/18 05:47 RBC 3.38 Mil/uL (4.40-5.90) L 04/11/18 05:47 Hgb 12.6 g/dL (12.0-18.0) 04/11/18 05:47 Hct 37.5 % (35.0-51.0) 04/11/18 05:47 MCV 110.9 fL (80.0-94.0) H 04/11/18 05:47 MCH 37.3 pg (27.0-31.0) H 04/11/18 05:47 MCHC 33.7 g/dL (33.0-37.0) 04/11/18 05:47 RDW 12.7 % (11.5-14.5) 04/11/18 05:47 Plt Count 168 K/uL (130-400) 04/11/18 05:47 MPV 10.9 fL (7.2-11.7) 04/11/18 05:47 Neut % (Auto) 52.6 % (50.0-75.0) 04/11/18 05:47 Lymph % (Auto) 24.9 % (20.0-40.0) 04/11/18 05:47 [place] % (Auto) 20.0 % (0.0-10.0) H 04/11/18 05:47 Eos % (Auto) 1.6 % (0.0-4.0) 04/11/18 05:47 Baso % (Auto) 0.9 % (0.0-2.0) 04/11/18 05:47 Neut # (Auto) 4.3 K/uL (1.8-7.0) 04/11/18 05:47 Lymph # (Auto) 2.0 K/uL (1.0-4.3) 04/11/18 05:47 [place] # (Auto) 1.6 K/uL (0.0-0.8) H 04/11/18 05:47 Eos # (Auto) 0.1 K/uL (0.0-0.7) 04/11/18 05:47 Baso # (Auto) 0.1 K/uL (0.0-0.2) 04/11/18 05:47 Neutrophils % (Manual) 81 % (50-75) H 04/08/18 06:00 Band Neutrophils % 2 % (0-2) 04/08/18 06:00 Lymphocytes % (Manual) 12 % (20-40) L 04/08/18 06:00 Monocytes % (Manual) 4 % (0-10) 04/08/18 06:00 Eosinophils % (Manual) 1 % (0-4) 04/08/18 06:00 Differential Comment 04/10/18 05:58 Platelet Estimate Decreased (NORMAL) L 04/08/18 06:00 Large Platelets Present 04/08/18 06:00 Giant Platelets Present 04/08/18 06:00 Polychromasia Slight 04/08/18 06:00 Macrocytosis (manual) Slight 04/08/18 06:00 Target Cells Slight 04/08/18 06:00 Retic Count 0.4 % (0.5-1.5) L 04/07/18 06:24 PT 12.3 SECONDS (9.7-12.2) H 04/07/18 06:24 INR 1.1 04/07/18 06:24 Sodium 136 mmol/L (132-148) 04/11/18 05:47 Potassium 3.4 mmol/L (3.6-5.2) L 04/11/18 05:47 Chloride 104 mmol/L (98-107) 04/11/18 05:47 Carbon Dioxide 24 mmol/L (22-30) 04/11/18 05:47 Anion Gap 11 (10-20) 04/11/18 05:47 BUN 10 mg/dL (9-20) 04/11/18 05:47 Creatinine 0.6 mg/dL (0.8-1.5) L 04/11/18 05:47 Est GFR ( Amer) > 60 04/11/18 05:47 Est GFR (Non-Af Amer) > 60 04/11/18 05:47 POC Glucose (mg/dL) 77 mg/dL (65-110) 04/04/18 22:20 Random Glucose 109 mg/dL (75-110) 04/11/18 05:47 Calcium 9.3 mg/dl (8.6-10.4) 04/11/18 05:47 Phosphorus 3.6 mg/dL (2.5-4.5) 04/11/18 05:47 Magnesium 1.5 mg/dL (1.6-2.3) L 04/11/18 05:47 Iron 126 ug/dL (49-181) 04/07/18 06:24 TIBC 344 ug/dL (250-450) 04/07/18 06:24 % Saturation 37 (20-55) 04/07/18 06:24 Ferritin 1160.0 ng/mL 04/07/18 06:24 Total Bilirubin 1.0 mg/dL (0.2-1.3) 04/11/18 05:47 AST 179 U/L (17-59) H 04/11/18 05:47 ALT 259 U/L (21-72) H 04/11/18 05:47 Alkaline Phosphatase 76 U/L (38-126) 04/11/18 05:47 Ammonia 27 umol/L (9-33) 04/10/18 15:37 Total Protein 7.7 g/dL (6.3-8.3) 04/11/18 05:47 Albumin 4.1 g/dL (3.5-5.0) 04/11/18 05:47 Globulin 3.6 gm/dL (2.2-3.9) 04/11/18 05:47 Albumin/Globulin Ratio 1.1 (1.0-2.1) 04/11/18 05:47 Lipase 651 U/L (23-300) H 04/04/18 17:49 Vitamin B12 > 1000 pg/mL (239-931) H 04/07/18 06:24 Folate > 20.0 ng/mL 04/07/18 06:24 Urine Color [place] (YELLOW) 04/08/18 09:31 Urine Clarity Clear (Clear) 04/08/18 09:31 Urine pH 5.0 (5.0-8.0) 04/08/18 09:31 Ur Specific [place] 1.016 (1.003-1.030) 04/08/18 09:31 Urine Protein Negative mg/dL (NEGATIVE) 04/08/18 09:31 Urine Glucose (UA) Normal mg/dL (Normal) 04/08/18 09:31 Urine Ketones Trace mg/dL (NEGATIVE) 04/08/18 09:31 Urine Blood Negative (NEGATIVE) 04/08/18 09:31 Urine Nitrate Negative (NEGATIVE) 04/08/18 09:31 Urine Bilirubin Negative (NEGATIVE) 04/08/18 09:31 Urine Urobilinogen 4.0 mg/dL (0.2-1.0) 04/08/18 09:31 Ur Leukocyte Esterase Neg Beth/uL (Negative) 04/08/18 09:31 Urine WBC (Auto) 1 /hpf (0-5) 04/08/18 09:31 Urine RBC (Auto) < 1 /hpf (0-3) 04/08/18 09:31 Urine Bacteria Rare (<OCC) 04/04/18 15:18 Stool Occult Blood Negative (NEGATIVE) 04/09/18 12:13 Salicylates < 1.0 mg/dL 1 04/04/18 15:18 Urine Opiates Screen Negative (NEGATIVE) 04/04/18 15:18 Urine Methadone Screen Negative (NEGATIVE) 04/04/18 15:18 Acetaminophen < 10.0 ug/mL (10.0-30.0) L 04/04/18 15:18 Ur Barbiturates Screen Negative (NEGATIVE) 04/04/18 15:18 Ur Phencyclidine Scrn Negative (NEGATIVE) 04/04/18 15:18 Ur Amphetamines Screen Negative (NEGATIVE) 04/04/18 15:18 U Benzodiazepines Scrn Negative (NEGATIVE) 04/04/18 15:18 U Oth Cocaine Metabols Negative (NEGATIVE) 04/04/18 15:18 U Cannabinoids Screen Negative (NEGATIVE) 04/04/18 15:18 Alcohol, Quantitative 485 mg/dl (0-10) H 04/04/18 15:18 Hepatitis A IgM Ab Negative (NEGATIVE) 04/06/18 20:10 Hep Bs Antigen Negative (NEGATIVE) 04/06/18 20:10 Hep B Core IgM Ab Negative (NEGATIVE) 04/06/18 20:10 Hepatitis C Antibody Negative (NEGATIVE) 04/06/18 20:10 - Hospital Course Hospital Course: This is a summary of patient's hospitalization. Patient initially admitted to psychiatry unit for alcohol withdrawal and depression. Medicine was consulted for rectal bleeding. Patient was transferred from [facility] to telemetry for possible GI bleed. Patient noted to have signs and symptoms of delirium tremens which required patient to be transferred to the intensive care unit for further care. Patient ultimately stabilized from ICU and transferred to the Floor. GI, psych, and critical consults obtain. Please refer to EMR for full detail of record. 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 Patient was evaluated and transferred to the ICU for DTs. Patient required Precedex and Ativan taper and symptoms were monitored and titrated off Precedex during the course. Patient completed Ativan taper. Patient no longer tachycardic, hallucination, and no visible shaking. patient is calm, tolerating breakfast and recgonizes that alcohol is the route of his problems. Patient stabilized and transferred out from the ICU. Discussed with psych, stable from their standpoint. Recommends Lexapro 10mg PO daily, alcohol cessation, and following [facility] for follow-up monitoring. * Discussed and updated family. On discharge. * Recommended for Alcoholic Anonymous upon discharge in promotion of alcohol cessation. * Folic acid 1 mg Po daily * Thiamine 100mg Po daily * MVI 1 tab PO daily 2) Alcoholic Hepatitis (improving) Transaminitis Assessment/Plan * Patient is heavy alcohol user * tylenol <10 * alcohol 485 * hepatitis panel: negative * Abdominal US (04/07/18): increased echogenicity of the hepatic parenchymal cortex suggestive for fatty infiltration versus hepatic parenchymal disease. limited visualization of the pancreas. limited visualization of the aorta and IVC * Maddrey's Discriminant Function for Alcoholic Hepatitis: 2.4 good prognosis * Fall precautions * tremors have resolved * Repeat LFTS upon discharge for resolution, maintain sobriety off alcohol 3) Rectal Bleeding (not current) Assessment/Plan * monitor on telemetry (transferred out from [facility]) * gi consult-->discussed to advance to clear liquids; no plans for procedure 04/09/18 * patient is having bowel movements, no rectal bleeding noted. H/H stable. occult blood negative. Recommended on discharge, * follow-up outpatient, obtain GI referral since patient is due for screening colonoscopy for colon cancer given age; no nsaids; abstain from alcohol 4) Thrombocytopenia (normalized) Assessment/Plan * suspect secondary to alcohol effect on bone marrow suppression * Abdominal US (04/07/18): increased echogenicity of the hepatic parenchymal cortex suggestive for fatty infiltration versus hepatic parenchymal disease. limited visualization of the pancreas. 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 * B12: >1000 * Folate: >20.0 * Iron: 126 * TIBC: 344 * iron saturation: 38% * Ferritin: 1116 6) Suicidal attempt (Stable) Depression (Chronic) Assessment/Plan * Discussed with psych, stable from standpoint * Lexapro 10mg PO daily and f/u CRC on discharge 7) Hypokalemia (stable) Assessment/Plan * monitor and replete 8) Hypomagnesium (Stable) Assessment/Plan * monitor and replete 9) Tobacco Abuse (chronic) Assessment/Plan * Nicoderm patch daily * smoking cessation advised 10) Leukocytosis (normalized) Assessment/Plan * Normalized * chest xray normal * patient remains afebrile * Blood cultures negative * Urine culture negative Discharge Plan - Discharge Medications Prescriptions: Escitalopram [Lexapro] 10 mg PO DAILY #30 tab Famotidine [Acid Controller] 20 mg PO DAILY #30 tablet RX: Folic Acid 1 mg PO DAILY #30 tab RX: Multivitamins [Hexavitamin] 1 tab PO DAILY #30 tab RX: Thiamine [Vitamin B1 Tab] 100 mg PO DAILY #30 tab - Follow Up Plan Condition: STABLE Disposition: HOME/ ROUTINE Instructions: Hypokalemia (DC), Gastrointestinal Bleeding (DC), Quitting Smoking, Alcohol Abuse and Alcoholism (DC), Escitalopram, Famotidine, Folic Acid, Thiamine, Vitamins (Multiple/Oral), Effects of Alcohol on Your Health, Alcohol Withdrawal (DC) Additional Instructions: Pt is medically stable for discharge home as per Dr. Ho. Pt should continue taking previously prescribed medications. Pt should start taking Pepcid 20 mg once by mouth daily, Thiamine 100 mg one tab by mouth daily, Folic acid 1 mg by mouth daily, Multivitamins once daily, Lexapro 10 mg one tab by mouth daily. Pt should follow up with [facility] , at [facility] basement within 2 weeks of discharge for management of medical problems and setting up of colonoscopy screening. Pt should follow up with psychiatry, Dr. Wyman, or the CRC (across the street from [facility]) within 2 weeks of discharge for management of depression and Lexapro. Pt should follow up with Alcoholics Anonymous. If symptoms worsen, please head to nearest Emergency Department for evaluation. Instructions were explained to the pt, who understands and agrees with discharge plan. PT es mdicamente estable para el hogar de descarga more por el Dr. Ho. PT debe continuar tomando medicamentos previamente prescritos. PT debe comenzar a martha Pepcid 20 mg alok vez por boca diariamente, tiamina 100 mg alok ficha por boca diariamente, cido flico 1 mg por boca diariamente, multivitaminas alok vez al da, Lexapro 10 mg alok ficha por boca diariamente. PT debe seguir con [facility] , en el stano de [facility] dentro de 2 semanas de kulwinder para la gestin de problemas mdicos y la creacin de la colonoscopia de cribado. PT debe seguir con la psiquiatra, el Dr. Wyman, o el CRC (al otro lado de la maldonado del [facility]) dentro de 2 semanas de kulwinder para el manejo de la depresin y Lexapro. PT debe hacer un seguimiento con alcohlicos annimos. Si los sntomas empeoran, dirjase al Departamento de emergencias ms cercano para nuno evaluacin. Las instrucciones fueron explicadas al PT, que entiende y concuerda con el plan de kulwinder Referrals: Alcoholics Anonymous [Outside] [facility] [Outside] Karla Wyman MD [Staff Provider] - Attending/Attestation - Attestation I have personally seen and examined this patient.: Yes I have fully participated in the care of the patient.: Yes I have reviewed all pertinent clinical information, including history, physical exam and plan: Yes
[2018-04-11 18:57] VITALS: TEMP 97.9
[2018-04-11 19:34] VITALS: PULSE 103; RESP 19
== END 2018-04-11 19:30 | disposition home or self-care (01) | DRG 430 ==
LOC: C.ER 13:59 → C.9E 22:37 → C.5E 22:51 → C.6T 04-06 20:49 → C.9I 04-07 08:06
PROVIDERS: ADMIT Hospitalist; ATTEND Hospitalist
PROC: HZ42ZZZ Group Counseling for Substance Abuse Treatment, Cognitive-Behavioral (ICD-10-PCS; principal; 2018-04-05)
PROC: HZ46ZZZ Group Counseling for Substance Abuse Treatment, Psychoeducation (ICD-10-PCS; 2018-04-05)
PROC: HZ2ZZZZ Detoxification Services for Substance Abuse Treatment (ICD-10-PCS; 2018-04-05)
DX: F33.2 Major depressive disorder, recurrent severe without psychotic features (principal); F10.231 Alcohol dependence with withdrawal delirium; D69.6 Thrombocytopenia, unspecified; E87.6 Hypokalemia; K62.5 Hemorrhage of anus and rectum; F17.200 Nicotine dependence, unspecified, uncomplicated; K70.10 Alcoholic hepatitis without ascites; R45.851 Suicidal ideations; Z91.19 Patient's noncompliance with other medical treatment and regimen; D75.9 Disease of blood and blood-forming organs, unspecified; F41.9 Anxiety disorder, unspecified; D64.9 Anemia, unspecified; D72.829 Elevated white blood cell count, unspecified; E83.42 Hypomagnesemia; Y90.8 Blood alcohol level of 240 mg/100 ml or more